=== PATIENT | male | born 1950 | race Caucasian/White ===

== ENCOUNTER 2017-10-29 12:24 | Emergency (ER) | payer MEDICARE, OTHER ==
[~2017-10-29] VITALS: Ht 188 cm; Wt 90.8 kg
[~2017-10-29 12:24] MED LIST: ASCO-262 PO; ASCO500T20 PO; ASPI-266 PO; ASPI-586 PO; ASPI325T4 PEG; AVOD0.5CAP PO; Atorvastatin Calcium PEG; BACL10TA PO; CARB200T PO; CARI350T PO; CELE200C PO; CETI10TA17 PO; CETI10TA57 PO; CLCX100C PO; DEXT1CAP3 PO; DICL100G13 TOP; DIPH25TA31 PO; DIPH25TA82 PO; DOCU-238 PO; DPH125U5 PO; FLUO20CA25 PO; GABA-488 PO; GABA100C PO; Gabapentin PO; HEPARIN SOD SC; LEVE100S PEG; LEVE100S16 PO; LORA-405 PO; Linezolid PO; MULT-974 PO; MULT1TAB69 PO; NEUDEXTA PO; NFPRILOC40 PO; OMEP20CA6 PO; OMEP20TA7 PO; ROSU5TAB PO; SULF1TAB35 PO; TAMS0.4C98 PO; Trazodone Hcl PEG; VITA1CAP PO; tegretol PO
--- NOTE | 2017-10-29 14:11 | ED GU-Male ---
General Chief Complaint: -Male Stated Complaint: ENLARGED PROSTATE,CAN'T URINATE Nursing Triage Note: PT WITH HX OF STROKE 3 YRS AGO PRESENTS WITH BEING UNABLE TO URINATE SINCE LAST NIGHT. HX OF URINARY ISSUES, KIDNEY STONE THAT HE HAS SEEN DR. ALTAMIRANO ABOUT LAST MAY. Source: patient Exam Limitations: no limitations History of Present Illness Date Seen by Provider: Oct 29, 2017 Time Seen by Provider: 14:09 Initial Comments Patient sent to ER by private vehicle from [facility] in [facility] with reports of urinary retention. He has not urinated since last night at 10 PM. He complained to his of some suprapubic abdominal pain. He is very dysphasic as a residual effect of stroke 3 years ago. He is wheelchair bound. He does see Dr. Altamirano for BPH/left ureteral stone. He recently had a kidney stone that was unable to be removed and had left ureteral stent placed and removed by Dr Altamirano. Primary care is Dr. Davila at [facility] in [place] Timing/Duration: just prior to arrival Severity/Quality: moderate Location: suprapubic Radiation: none Activities at Onset: none Prior Genitourinary Problems: none Associated Symptoms: abdominal pain, dysuria Allergies and Home Medications Allergies Coded Allergies: butorphanol (Unverified Adverse Reaction, Unknown, 09/13/14) HALLUCINATIONS fentanyl (Verified Adverse Reaction, Unknown, hallucinations, 04/03/16) nalbuphine (Unverified Adverse Reaction, Unknown, 09/13/14) HALLUCINATIONS Home Medications Ascorbate Calcium 500 Mg Tablet, 500 MG PO BID, (Reported) Baclofen 10 Mg Tablet, 10 MG PO DAILY, (Reported) Carbamazepine 200 Mg Tablet, 200 MG PO BID, (Reported) Dextromethorphan HBr/Quinidine 1 Each Capsule, 1 TAB PO BID, (Reported) Diphenhydramine HCl 25 Mg Tablet, 25 MG PO BID, (Reported) Docusate Sodium 100 Mg Capsule, 100 MG PO BID, (Reported) Dutasteride 0.5 Mg Cap, 0.5 MG PO HS, (Reported) Fluoxetine HCl 20 Mg Capsule, 20 MG PO DAILY, (Reported) Gabapentin 300 Mg Capsule, 300 MG PO HS, (Reported) Hydrocodone/Acetaminophen 1 Each Tablet, 1 EACH PO Q4H PRN for PAIN-MODERATE TO SEVERE Prescribed by: PHILIPP BEJARANO on 10/29/17 1617 Lorazepam 1 Mg Tablet, 1 MG PO HS, (Reported) Multivitamin 1 Each Tablet, 1 EACH PO DAILY, (Reported) Omeprazole 20 Mg Tablet.dr, 20 MG PO DAILY, (Reported) Rosuvastatin Calcium 5 Mg Tablet, 10 MG PO HS, (Reported) Sulfamethoxazole/Trimethoprim 1 Each Tablet, 1 EACH PO HS, (Reported) Sulfamethoxazole/Trimethoprim 1 Each Tablet, 1 EACH PO BID Prescribed by: PHILIPP BEJARANO on 10/29/17 161 Vitamin B Complex 1 Each Capsule, 1 EACH PO DAILY, (Reported) Patient Home Medication List Home Medication List Reviewed: Yes Constitutional: see HPI EENTM: see HPI Respiratory: no symptoms reported Cardiovascular: no symptoms reported Genitourinary: see HPI Musculoskeletal: no symptoms reported Skin: no symptoms reported Psychiatric/Neurological: No Symptoms Reported Endocrine: No Symptoms Reported Past Wistlih-Xkwuyd-Vmwydr Hx Patient Social History Alcohol Use: Denies Use Recreational Drug Use: No Smoking Status: Former Smoker Former Smoker, Quit: Jul 30, 2012 Recent Foreign Travel: No Contact w/Someone Who Travel: No Recent Infectious Disease Expo: No Recent Hopitalizations: No Immunizations Up To Date Date of Pneumonia Vaccine: Aug 13, 2013 Date of Influenza Vaccine: May 16, 2017 Seasonal Allergies Seasonal Allergies: No Surgeries History of Surgeries: Yes (right CEA, knee sx x5, right foot sx, hernia sx, lower back sx) Surgeries: Appendectomy, Neurological, Orthopedic, Vascular Surgery Respiratory History of Respiratory Disorde: No Cardiovascular History of Cardiac Disorders: Yes (ANGIOPLASTY '96, HIGH LIPIDS, CAROTID STENOSIS ) Cardiac Disorders: High Cholesterol, Peripheral Vascular Neurological History of Neurological Disord: Yes (YEARS AGO BAD HEADACHES, DIZZY SPELLS/ FAINTING) Neurological Disorders: Seizure Disorder, Stroke Genitourinary History of Genitourinary Disor: Yes Genitourinary Disorders: Kidney Stones, UTI-Chronic Gastrointestinal History of Gastrointestinal Di: Yes Gastrointestinal Disorders: Gastroesophageal Reflux Musculoskeletal History of Musculoskeletal Dis: Yes (ARTHRITIS HANDS, KNEES; SCIATIC NERVE SURG ) Musculoskeletal Disorders: Arthritis Endocrine History of Endocrine Disorders: No HEENT HEENT Disorders: Dysphagia Hearing Impairment: Denies Cancer History of Cancer: No Psychosocial History of Psychiatric Problem: No Integumentary History of Skin or Integumenta: No Blood Transfusions History of Blood Disorders: No Adverse Reaction to a Blood Tr: No Family Medical History Family Medial History: Alzheimer's disease Uncle FH: CVA (cerebrovascular accident) Uncle Uncle FH: coronary artery disease 19 FATHER G8 BROTHER FH: lung cancer G8 BROTHER FH: uterine cancer Aunt Hypertension G8 BROTHER Myocardial infarction 19 FATHER Vertigo Uncle Aunt Physical Exam Vital Signs Vital Signs - First Documented 10/29/17 13:50 Temp 96.9 Pulse 85 Resp 20 B/P (MAP) 134/97 (109) Pulse Ox 96 O2 Delivery Room Air Capillary Refill : Less Than 3 Seconds General Appearance: WD/WN, no apparent distress HEENT: PERRL/EOMI, normal ENT inspection Neck: non-tender, full range of motion Respiratory: normal breath sounds, no respiratory distress, no accessory muscle use Gastrointestinal: normal bowel sounds, non tender, tenderness (hypoactive bowel sounds) Extremities: normal range of motion, non-tender Neurologic/Psychiatric: alert, normal mood/affect Skin: normal color, warm/dry Progress/Results/Core Measures Suspected Sepsis Recent Fever Within 48 Hours: No Infection Criteria Present: None New/Unexplained Altered Menta: No Sepsis Screen: No Definite Risk Sepsis Diagnosis: SIRS Temperature:96.9 Pulse: 85 Respiratory Rate: 20 Laboratory Tests 10/29/17 14:30: White Blood Count 4.8 Blood Pressure 134 /97 Mean: 109 Laboratory Tests 10/29/17 14:30: Creatinine 0.96, Platelet Count 194, Total Bilirubin 0.6 Results/Orders Lab Results Laboratory Tests Test 10/29/17 14:30 10/29/17 15:20 Range/Units White Blood Count 4.8 4.3-11.0 10^3/uL Red Blood Count 4.77 4.35-5.85 10^6/uL Hemoglobin 14.7 13.3-17.7 G/DL Hematocrit 42 40-54 % Mean Corpuscular Volume 88 80-99 FL Mean Corpuscular Hemoglobin 31 25-34 PG Mean Corpuscular Hemoglobin Concent 35 32-36 G/DL Red Cell Distribution Width 14.0 10.0-14.5 % Platelet Count 194 130-400 10^3/uL Mean Platelet Volume 9.6 7.4-10.4 FL Neutrophils (%) (Auto) 58 42-75 % Lymphocytes (%) (Auto) 26 12-44 % Monocytes (%) (Auto) 13 H 0-12 % Eosinophils (%) (Auto) 2 0-10 % Basophils (%) (Auto) 0 0-10 % Neutrophils # (Auto) 2.8 1.8-7.8 X 10^3 Lymphocytes # (Auto) 1.3 1.0-4.0 X 10^3 Monocytes # (Auto) 0.6 0.0-1.0 X 10^3 Eosinophils # (Auto) 0.1 0.0-0.3 10^3/uL Basophils # (Auto) 0.0 0.0-0.1 10^3/uL Sodium Level 140 135-145 MMOL/L Potassium Level 4.3 3.6-5.0 MMOL/L Chloride Level 109 H 98-107 MMOL/L Carbon Dioxide Level 26 21-32 MMOL/L Anion Gap 5 5-14 MMOL/L Blood Urea Nitrogen 18 7-18 MG/DL Creatinine 0.96 0.60-1.30 MG/DL Estimat Glomerular Filtration Rate > 60 BUN/Creatinine Ratio 19 Glucose Level 97 70-105 MG/DL Calcium Level 8.9 8.5-10.1 MG/DL Total Bilirubin 0.6 0.1-1.0 MG/DL Aspartate Amino Transf (AST/SGOT) 14 5-34 U/L Alanine Aminotransferase (ALT/SGPT) 17 0-55 U/L Alkaline Phosphatase 69 40-136 U/L Total Protein 7.2 6.4-8.2 GM/DL Albumin 4.0 3.2-4.5 GM/DL Urine Color TUNG H Urine Clarity CLEAR Urine pH 5 5-9 Urine Specific [place] 1.025 H 1.016-1.022 Urine Protein 1+ H NEGATIVE Urine Glucose (UA) NEGATIVE NEGATIVE Urine Ketones NEGATIVE NEGATIVE Urine Nitrite NEGATIVE NEGATIVE Urine Bilirubin NEGATIVE NEGATIVE Urine Urobilinogen NORMAL NORMAL MG/DL Urine Leukocyte Esterase 2+ H NEGATIVE Urine RBC (Auto) 4+ H NEGATIVE Urine RBC 10-25 H /HPF Urine WBC 50-100 H /HPF Urine Crystals NONE /LPF Urine Bacteria TRACE /HPF Urine Casts NONE /LPF Urine Mucus SMALL H /LPF Urine Culture Indicated YES My Orders Orders - PHILIPP BEJARANO VEGETABLE INSPECTOR Cbc With Automated Diff (10/29/17 14:08) Comprehensive Metabolic Panel (10/29/17 14:08) Saline Lock/Iv-Start (10/29/17 14:08) Ct Abd/Pelvis Wo(Kidney Stone) (10/29/17 14:08) Ketorolac Injection (Toradol Injection) (10/29/17 14:15) Lactated Ringers (Lr 1000 Ml Iv Solution (10/29/17 14:15) Ua Culture If Indicated (10/29/17 14:08) Lidocaine 2% (Urojet) (Xylocaine Urojet) (10/29/17 15:20) Begum Cath Insertion (10/29/17 15:30) Urine Culture (10/29/17 15:20) Ceftriaxone Injection (Rocephin Injectio (10/29/17 16:15) Abdomen/Kub 1view (10/29/17 16:09) Medications Given in ED Current Medications Medications Dose Ordered Sig/Jn Route Start Time Stop Time Status Last Admin Dose Admin Ceftriaxone Sodium 1000 mg/ Sodium Chloride 100 ml @ 200 mls/hr ONCE ONCE IV 10/29/17 16:15 10/29/17 16:44 DC 10/29/17 16:29 200 MLS/HR Ketorolac Tromethamine 15 mg ONCE ONCE IVP 10/29/17 14:15 10/29/17 14:16 DC 10/29/17 14:37 15 MG Vital Signs/I&O Vital Sign - Last 12Hours 10/29/17 10/29/17 10/29/17 13:50 14:37 17:10 Temp 96.9 96.9 97.0 Pulse 85 80 Resp 20 20 B/P (MAP) 134/97 (109) 130/90 (109) Pulse Ox 96 97 O2 Delivery Room Air Room Air Capillary Refill : Less Than 3 Seconds Blood Pressure Mean: 109 Progress Note : Progress Note NAME: FINN FIGU[facility]EDO [facility] REC#: [id number] PT STATUS: REG ER : 1950 PHYSICIAN: PHILIPP BEJARANO APRN ADMIT DATE: 10/29/17/ER Draft Date of Exam:10/29/17 CT ABD/PELVIS WO(KIDNEY STONE) PROCEDURE: CT urinary tract, rule out kidney stone. TECHNIQUE: Multiple contiguous axial images were obtained through the abdomen and pelvis without the use of intravenous contrast. INDICATION: Urination problems, lower abdominal pain, prostate cancer. CORRELATION STUDY: None. FINDINGS: LOWER THORAX: No significant basilar infiltrate. Trace pleural effusions. Areas of bronchial thickening noted about the lung bases. Heart size is normal with a small pericardial effusion inferiorly. LIVER: A 7.5 x 5.5 cm low-density masslike finding in a large portion of the left lobe of the liver is present, most compatible with a cyst. A 1 cm low-density foci in the anterolateral aspect of the liver is also present, incompletely characterized on this study. GALLBLADDER: Present and unremarkable. No bile duct dilatation. SPLEEN: Unremarkable. PANCREAS: At the anterior neck is a questionable 11 x 9 mm low-density region. ADRENAL GLANDS: Unremarkable. KIDNEYS: Nonobstructing bilateral renal stones are present. The largest is in the inferior pole of the left kidney, likely grouped calcification in aggregate 8 mm. Slight loss of smooth cortical margins are noted. Most pronounced area exophytic at the inferior pole on the right measures 11 mm, incompletely characterized and favors probable cyst. There is a moderate left-sided obstructive uropathy owing to an approximately 6 x 6 mm stone located at the junction of the middle and distal third of the of left ureter. This is approximately 7 cm proximal to the ureterovesical junction. The remainder of the distal left ureter and right renal collecting system are unremarkable. ABDOMINAL AORTA: Moderate wall calcification. An infrarenal fusiform aneurysm is present, maximum dimension at 3.8 x 3.7 cm. GASTROINTESTINAL TRACT: Colon diverticulosis without evidence for acute diverticulitis. Mild severity fecal retention. No obstruction. URINARY BLADDER: Unremarkable. REPRODUCTIVE: Prostate gland a few microcalcifications, otherwise unremarkable. OSSEOUS STRUCTURES: Compression deformity is non-acute superior T9 , T10-T11 vertebral bodies. Advanced multilevel degenerative changes are present. Leftward curvature. IMPRESSION: 1. Moderate left-sided obstructive uropathy owing to approximately a 6 mm stone located in the mid to distal third of the left ureter. Additional nonobstructing bilateral renal stones are present. 2. There is an infrarenal abdominal aortic aneurysm with a maximum dimension just under 4 cm. Dictated on workstation # [id number] Dict: 10/29/17 1502 Trans: 10/29/17 1538 [facility] [id number] Interpreted by: KAEL DUKE DO Electronically signed by: Departure Communication (Admissions) Progress Notes I spoke with Dr. Altamirano. Recommends IV Rocephin, oral antibiotics, leave catheter in place and discharged home. He will follow-up with the patient in clinic tomorrow and schedule for lithotripsy. His primary care provider is Dr. Davila at the [facility]. Fax #[phone]. I did fax the CT report and my note to them so that the patient can receive follow-up on the pancreatic lesion. I did discuss with the patient's the need for follow-up with primary care in regards to this pancreatic abnormal appearance on CT. Impression Impression: Primary Impression: Urinary retention Additional Impressions: Urinary tract infection Left ureteral stone Lesion of pancreas Disposition: HOME, SELF-CARE Condition: Stable Departure-Patient Inst. Decision time for Depature: 16:12 Referrals: WESLEY CRUZ DO (PCP) Primary Care Physician CARYN NEWMAN (Family) Primary Care Physician Patient Instructions: Urinary Tract Infection, Adult (DC) Add. Discharge Instructions: 1. Antibiotics as directed 2. Leave the Begum catheter in place 3. Your scheduled to see Dr. Altamirano tomorrow at 2:30 PM. Pain medication as needed. All discharge instructions reviewed with patient and/or family. Voiced understanding. Scripts Sulfamethoxazole/Trimethoprim (Bactrim Ds Tablet) 1 Each Tablet 1 EACH PO BID, #14 TAB Prov: PHILIPP BEJARANO APRN 10/29/17 Hydrocodone/Acetaminophen ([place] 5-325 Tablet) 1 Each Tablet 1 EACH PO Q4H Y for PAIN-MODERATE TO SEVERE, #14 TAB Prov: PHILIPP BEJARANO APRN 10/29/17 Copy Copies To 1: NATHANAEL ALTAMIRANO MD, PETER J APRN Oct 29, 2017 14:11
[2017-10-29] MEDS ORDERED: LACTATED RINGERS 1,000 ML IV SCH (14:15)
[2017-10-29] MEDS ORDERED: KETOROLAC 30 MG/ML VIAL IVP ONE (14:15)
[2017-10-29 14:37] LABS: BASOPHILS % (AUTO) 0 % (0-10); EOSINOPHILS # (AUTO) 0.1 10^3/uL (0.0-0.3); EOSINOPHILS % (AUTO) 2 % (0-10); HEMATOCRIT 42 % (40-54); HEMOGLOBIN 14.7 G/DL (13.3-17.7); LYMPHOCYTES # (AUTO) 1.3 X 10^3 (1.0-4.0); LYMPHOCYTES % (AUTO) 26 % (12-44); MEAN CORPUSCULAR HEMOGLOBIN 31 PG (25-34); MEAN CORPUSCULAR HGB CONC 35 G/DL (32-36); MEAN CORPUSCULAR VOLUME 88 FL (80-99); MEAN PLATELET VOLUME 9.6 FL (7.4-10.4); MONOCYTES # (AUTO) 0.6 X 10^3 (0.0-1.0); MONOCYTES % (AUTO) 13 % (0-12); NEUTROPHILS # (AUTO) 2.8 X 10^3 (1.8-7.8); NEUTROPHILS % (AUTO) 58 % (42-75); PLATELET COUNT 194 10^3/uL (130-400); RED BLOOD COUNT 4.77 10^6/uL (4.35-5.85); WHITE BLOOD COUNT 4.8 10^3/uL (4.3-11.0)
[2017-10-29 15:01] LABS: ALANINE AMINOTRANSFERASE 17 U/L (0-55); ALKALINE PHOSPHATASE 69 U/L (40-136); BILIRUBIN,TOTAL 0.6 MG/DL (0.1-1.0); BUN/CREATININE RATIO 19; CALCIUM 8.9 MG/DL (8.5-10.1); CARBON DIOXIDE 26 MMOL/L (21-32); CHLORIDE 109 MMOL/L (98-107); CREATININE SERUM 0.96 MG/DL (0.60-1.30); GFR ESTIMATED > 60; GLUCOSE 97 MG/DL (70-105); POTASSIUM 4.3 MMOL/L (3.6-5.0); SODIUM 140 MMOL/L (135-145); TOTAL PROTEIN 7.2 GM/DL (6.4-8.2)
[2017-10-29] MEDS ORDERED: LIDOCAINE UROJET 2% GEL 10 ML PKG ONE (15:20)
[2017-10-29 15:39] LABS: BILIRUBIN,URINE NEGATIVE (NEGATIVE); CLARITY,URINE CLEAR; COLOR,URINE AMBER; GLUCOSE, URINE (UA) NEGATIVE (NEGATIVE); KETONES,URINE NEGATIVE (NEGATIVE); LEUKOCYTE ESTERASE ,URINE 2+ (NEGATIVE); NITRITE,URINE NEGATIVE (NEGATIVE); PH,URINE 5 (5-9); PROTEIN,URINE 1+ (NEGATIVE); UROBILINOGEN,URINE NORMAL (NORMAL)
--- NOTE | 2017-10-29 15:39 | Diagnostic Imaging Report ---
PROCEDURE: CT urinary tract, rule out kidney stone. TECHNIQUE: Multiple contiguous axial images were obtained through the abdomen and pelvis without the use of intravenous contrast. INDICATION: Urination problems, lower abdominal pain, prostate cancer. CORRELATION STUDY: None. FINDINGS: LOWER THORAX: No significant basilar infiltrate. Trace pleural effusions. Areas of bronchial thickening noted about the lung bases. Heart size is normal with a small pericardial effusion inferiorly. LIVER: A 7.5 x 5.5 cm low-density masslike finding in a large portion of the left lobe of the liver is present, most compatible with a cyst. A 1 cm low-density foci in the anterolateral aspect of the liver is also present, incompletely characterized on this study. GALLBLADDER: Present and unremarkable. No bile duct dilatation. SPLEEN: Unremarkable. PANCREAS: At the anterior neck is a questionable 11 x 9 mm low-density region. ADRENAL GLANDS: Unremarkable. KIDNEYS: Nonobstructing bilateral renal stones are present. The largest is in the inferior pole of the left kidney, likely grouped calcification in aggregate 8 mm. Slight loss of smooth cortical margins are noted. Most pronounced area exophytic at the inferior pole on the right measures 11 mm, incompletely characterized and favors probable cyst. There is a moderate left-sided obstructive uropathy owing to an approximately 6 x 6 mm stone located at the junction of the middle and distal third of the of left ureter. This is approximately 7 cm proximal to the ureterovesical junction. The remainder of the distal left ureter and right renal collecting system are unremarkable. ABDOMINAL AORTA: Moderate wall calcification. An infrarenal fusiform aneurysm is present, maximum dimension at 3.8 x 3.7 cm. GASTROINTESTINAL TRACT: Colon diverticulosis without evidence for acute diverticulitis. Mild severity fecal retention. No obstruction. URINARY BLADDER: Unremarkable. REPRODUCTIVE: Prostate gland a few microcalcifications, otherwise unremarkable. OSSEOUS STRUCTURES: Compression deformity is non-acute superior T9 , T10-T11 vertebral bodies. Advanced multilevel degenerative changes are present. Leftward curvature. IMPRESSION: 1. Moderate left-sided obstructive uropathy owing to approximately a 6 mm stone located in the mid to distal third of the left ureter. Additional nonobstructing bilateral renal stones are present. 2. There is an infrarenal abdominal aortic aneurysm with a maximum dimension just under 4 cm. Dictated by: Dictated on workstation # [id number]
[2017-10-29 16:01] LABS: WBC,URINE 50-100 /HPF
[2017-10-29 16:02] LABS: BACTERIA,URINE TRACE /HPF
[2017-10-29] MEDS ORDERED: cefTRIAXone INJECTION 1,000 MG in NS (IVPB) 100 ML IV ONE (16:15)
[2017-10-29] MEDS ORDERED: SULF1TAB35 PO (16:17)
[2017-10-29] MEDS ORDERED: HYDR-757 PO (16:17)
--- NOTE | 2017-10-29 16:51 | Diagnostic Imaging Report ---
INDICATION: Dysuria. Portable supine images of the abdomen are obtained. Comparison is made to the study of 04/07/2016. FINDINGS: Overall bowel gas pattern is unremarkable. There are faint calcifications projecting over the mid portion of the left kidney, which likely represent renal calculi. No definite stone is seen along the course of either ureter; however, overlying bowel does limit evaluation. Catheter projects over the midline of the pelvis and could be in the bladder. IMPRESSION: Intrarenal calculi, greater on the left. No definite ureteric stone is seen by radiography. Dictated by: Dictated on workstation # [id number]
[2017-10-29 17:10] VITALS: BP 130/90
== END 2017-10-29 17:10 | disposition home or self-care (01) ==
LOC: EDUNIT# 12:24 → ER 12:26
DX: N13.6 Pyonephrosis (principal); K86.89 Other specified diseases of pancreas; K21.9 Gastro-esophageal reflux disease without esophagitis; G40.909 Epilepsy, unspecified, not intractable, without status epilepticus; E78.00 Pure hypercholesterolemia, unspecified; Z90.49 Acquired absence of other specified parts of digestive tract; Z86.73 Personal history of transient ischemic attack (TIA), and cerebral infarction without residual deficits; Z87.442 Personal history of urinary calculi; Z87.891 Personal history of nicotine dependence; Z88.1 Allergy status to other antibiotic agents; Z88.6 Allergy status to analgesic agent
CPT/HCPCS: 36415; 51702; 74018; 74176; 80053; 81000; 85025; 87088

== ENCOUNTER 2017-10-30 15:14 | Outpatient (CLI) | payer MEDICARE, OTHER ==
[~2017-10-30] VITALS: Ht 188 cm; Wt 90.7 kg
[~2017-10-30 15:14] MED LIST changes: +HYDR-757 PO
== END 2017-10-30 15:40 | disposition home or self-care (01) ==
LOC: PREOP 15:14
PROVIDERS: ATTEND Urology
DX: Z01.818 Encounter for other preprocedural examination (principal); Z11.2 Encounter for screening for other bacterial diseases; N20.1 Calculus of ureter; N20.0 Calculus of kidney; N40.0 Benign prostatic hyperplasia without lower urinary tract symptoms
CPT/HCPCS: 87081

== ENCOUNTER 2017-11-07 06:25 | Day surgery (SDC) | payer MEDICARE, OTHER ==
[~2017-11-07] VITALS: Ht 188 cm; Wt 90.7 kg
--- NOTE | 2017-11-07 07:00 | Progress Note-Pre Operative ---
Pre-Operative Progress Note H&P Reviewed The H&P was reviewed, patient examined and no changes noted. Date Seen by Provider: Nov 07, 2017 Time Seen by Provider: 07:00 Date H&P Reviewed: Nov 07, 2017 Time H&P Reviewed: 07:00 Pre-Operative Diagnosis: LT URETERAL STONE NATHANAEL ALTAMIRANO MD Nov 07, 2017 7:00 am
[2017-11-07] MEDS ORDERED: CATHETER FLUSH 10 ML SYR IV PRN (07:30)
[2017-11-07] MEDS ORDERED: cefTRIAXone 1 GM/NS 100 ML IVPB IV ONE ×2 (07:30)
[2017-11-07] MEDS ORDERED: LACTATED RINGERS 1,000 ML IV PRN (07:33)
[2017-11-07] MEDS ORDERED: cefTRIAXone INJECTION 1,000 MG in NS (IVPB) 100 ML IV ONE (07:45)
[2017-11-07] MEDS ORDERED: MIDAZOLAM 2 MG/2 ML (VERSED) VIAL ONE (07:46)
[2017-11-07] MEDS ORDERED: proPOfol 200 MG/20 ML (DIPRIVAN) VIAL IV ONE (07:46)
[2017-11-07] MEDS ORDERED: LIDOCAINE PF 2% 5 ML (XYLOCAINE) VIAL ONE (07:46)
[2017-11-07] MEDS ORDERED: DEXAMETHASONE 10 MG/ML (DECADRON) 1 ML VIAL ONE (07:46)
[2017-11-07] MEDS ORDERED: SEVOFLURANE (ULTANE) 15 ML INHAL SOLN ONE ×5 (07:46→09:13)
[2017-11-07] MEDS ORDERED: ONDANSETRON 4 MG/2 ML (SDV) Z0FRAN ONE (07:46)
[2017-11-07 08:03] VITALS: BP 124/89
[2017-11-07] MEDS ORDERED: fentaNYL INJECTION 100 MCG/2 ML AMP ONE (08:12)
--- NOTE | 2017-11-07 08:24 | Diagnostic Imaging Report ---
INDICATION: Kidney stones, preop. Time of exam 7:17 AM Comparison is made with prior abdominal radiographs from 10/29/2017. Calcific densities in the left abdomen are noted, likely renal. There may be some vague calcific densities in the right abdomen as well which could be renal as well. No definite ureteric calculi are detected. Bowel gas pattern is unremarkable. IMPRESSION: Bilateral abdominal calcifications, perhaps a renal calculi. No other abnormality is seen. Dictated by: Dictated on workstation # [id number]
--- NOTE | 2017-11-07 09:07 | Progress Note-Post Operative ---
Post-Operative Progess Note Surgeon (s)/Associate Store Director (s) Surgeon NATHANAEL ALTAMIRANO MD Associate Store Director: N/A Pre-Operative Diagnosis LT URETERAL STONE Post-Operative Diagnosis SAME Procedure & Operative Findings Date of Procedure 11/07/17 Procedure Performed/Findings CYSTO, LT URETERAL CATHETER AND LT ESWL Anesthesia Type GENERAL Estimated Blood Loss Estimated blood loss (mL): N/A Specimens/Packing Specimens Removed N/A Packing: N/A NATHANAEL ALTAMIRANO MD Nov 07, 2017 9:07 am
[2017-11-07] MEDS ORDERED: FUROSEMIDE 40 MG/4 ML INJ (LASIX) ONE (09:11)
[2017-11-07] MEDS ORDERED: KETOROLAC 30 MG/ML VIAL ONE (09:11)
--- NOTE | 2017-11-07 09:11 | Discharge Inst-Urology ---
Discharge Inst-Urology Discharge Medications New, Converted, or Re-newed RX: RX on Chart Patient Instructions/Follow Up Plan Please make appointment to been seen in office in 2 weeks. KUB prior to it KUB on way home Post ESWL instructions Increase oral fluids for 48 hours and then as needed. Diet and Activity as tolerated. If questions or concerns contact your physician Or seek help at emergency department. NATHANAEL ALTAMIRANO MD Nov 07, 2017 9:11 am
[2017-11-07] MEDS ORDERED: ONDANSETRON 4 MG/2 ML (SDV) Z0FRAN IVP PRN (09:30)
[2017-11-07] MEDS ORDERED: fentaNYL INJECTION 100 MCG/2 ML AMP IVP PRN (09:30)
--- NOTE | 2017-11-07 09:51 | Anesthesia-General Post-Op ---
General Patient Condition Mental Status/LOC: Same as Preop Cardiovascular: Satisfactory Nausea/Vomiting: Absent Respiratory: Satisfactory Pain: Controlled Complications: Absent Post Op Complications Complications None Follow Up Care/Instructions Patient Instructions None needed. Anesthesia/Patient Condition Patient Condition Patient is doing well, no complaints, stable vital signs, no apparent adverse anesthesia problems. No complications reported per nursing. DILLAN VILLAFUERTE CRNA Nov 07, 2017 09:51
[2017-11-07 10:10] VITALS: BP 142/90
[2017-11-07] MEDS ORDERED: CIPR-225 PO (10:27)
[2017-11-07] MEDS ORDERED: HYDR-3870 PO (10:27)
[2017-11-07] MEDS ORDERED: TAMS0.4C98 PO (10:27)
[2017-11-07 10:40] VITALS: BP 131/91
[2017-11-07 11:10] VITALS: BP 110/83
[2017-11-07 11:30] VITALS: BP 110/83
--- NOTE | 2017-11-07 11:39 | Diagnostic Imaging Report ---
INDICATION: Status post lithotripsy. Time of exam 1100 a.m. Correlation made with radiographs earlier the same day. A left-sided calculi are stable. No definite right-sided calculi are seen. No definite calculi along the course of the ureters are identified. IMPRESSION: Stable KUB since study earlier the same day. Dictated by: Dictated on workstation # [id number]
--- NOTE | 2017-11-07 13:30 | OPERATIVE REPORT ---
DATE OF SERVICE: 11/07/2017 PREOPERATIVE DIAGNOSIS: Left proximal ureteral stone. POSTOPERATIVE DIAGNOSIS: Left proximal ureteral stone. OPERATION PERFORMED: Cystoscopy, left ureteral catheterization and left ESWL. SURGEON: Manny Altamirano MD ANESTHESIA: General. COMPLICATIONS: None. PROCEDURE: Under satisfactory general anesthesia, the patient in a lithotomy position on the cystoscopy table. Genitalia were prepped and draped in the usual sterile fashion. A 23[place] cystoscope was introduced under vision. Anterior urethra was normal. The prostate revealed some enlargement was a median bar bladder neck obstruction. Bladder was entered and revealed trabeculations. Ureteric orifices normal in shape, size and configuration with clear efflux sluggish on the left side. Using the foroblique lens, I passed a 6-[place] ureteral catheter up until I met the stone around the level of the L4. A left ureteral catheter there used for contrast if needed for the ESWL. I removed the cystoscope, inserted the Begum catheter drained the bladder, inflated the balloon to 10 mL, to the ureteral catheter over the patient to the ESWL table. The stone was localized easily and shocks were delivered at kV of 6. A total of 3000 shocks fragmented the stone nicely. We did not need to do any contrast. At the end of the procedure, the Begum catheter and ureteral catheter were removed. The patient received 40 mg of Lasix and 30 mg of Toradol IV. He tolerated the procedure and anesthesia well and was sent to recovery room in stable condition. Job ID: [id number] DocumentID: [id number] Dictated Date: 11/07/2017 09:14:16 Fountain Operator Date: 11/07/2017 13:30:17 Dictated By: MANNY ALTAMIRANO MD
== END 2017-11-07 11:30 | disposition home or self-care (01) ==
LOC: SDC 06:25
PROVIDERS: ATTEND Urology
DX: N20.1 Calculus of ureter (principal); E78.5 Hyperlipidemia, unspecified; I73.9 Peripheral vascular disease, unspecified; G40.909 Epilepsy, unspecified, not intractable, without status epilepticus; N40.0 Benign prostatic hyperplasia without lower urinary tract symptoms; I25.10 Atherosclerotic heart disease of native coronary artery without angina pectoris; Z86.73 Personal history of transient ischemic attack (TIA), and cerebral infarction without residual deficits; Z95.5 Presence of coronary angioplasty implant and graft; Z79.899 Other long term (current) drug therapy; Z88.8 Allergy status to other drugs, medicaments and biological substances; Z99.3 Dependence on wheelchair
CPT/HCPCS: 74018

== ENCOUNTER → 2017-11-22 | Outpatient (CLI) | payer MEDICARE, OTHER ==
[~2017-11-22] MED LIST changes: +CIPR-225 PO; +HYDR-3870 PO
--- NOTE | 2017-11-22 13:05 | Diagnostic Imaging Report ---
INDICATION: Post left ESWL. Left ureteral stone Supine views of the abdomen shows bowel gas pattern to be within normal limits with no abnormally dilated loops of bowel. There is mild constipation. There is a 6 mm calcification projected over lower pole left kidney. No ureteral stones are evident. There is scoliosis with no acute bony abnormality. IMPRESSION: There is a 6 mm calculus in the lower pole of the left kidney. Dictated by: Dictated on workstation # [id number]
== END ==
LOC: RAD 12:40
PROVIDERS: ATTEND Urology
DX: N20.2 Calculus of kidney with calculus of ureter (principal)
CPT/HCPCS: 74018

== ENCOUNTER 2018-04-18 10:08 | Emergency (ER) | payer MEDICARE, OTHER ==
[~2018-04-18] VITALS: Ht 188 cm; Wt 90.7 kg
[~2018-04-18 10:08] MED LIST changes: +HYDR-4226 PO; -HYDR-757 PO
--- NOTE | 2018-04-18 10:35 | ED GU-Male ---
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 He has a history of enlarged prostate and has had these troubles before. Timing/Duration: constant Severity/Quality: moderate Location: suprapubic Radiation: none Activities at Onset: none Prior Genitourinary Problems: none Associated Symptoms: dysuria Allergies and Home Medications Allergies Coded Allergies: butorphanol (Unverified Adverse Reaction, Unknown, 09/13/14) HALLUCINATIONS fentanyl (Verified Adverse Reaction, Unknown, hallucinations, 04/03/16) nalbuphine (Unverified Adverse Reaction, Unknown, 09/13/14) HALLUCINATIONS Home Medications Ascorbate Calcium 500 Mg Tablet, 500 MG PO BID, (Reported) Baclofen 10 Mg Tablet, 10 MG PO DAILY, (Reported) Carbamazepine 200 Mg Tablet, 200 MG PO BID, (Reported) Ciprofloxacin HCl 500 Mg Tablet, 500 MG PO BID Prescribed by: JOSE VARGAS on 11/07/17 1027 Dextromethorphan HBr/Quinidine 1 Each Capsule, 1 TAB PO BID, (Reported) Diphenhydramine HCl 25 Mg Tablet, 25 MG PO BID, (Reported) Docusate Sodium 100 Mg Capsule, 100 MG PO BID, (Reported) Dutasteride 0.5 Mg Cap, 0.5 MG PO HS, (Reported) Fluoxetine HCl 20 Mg Capsule, 20 MG PO DAILY, (Reported) Gabapentin 300 Mg Capsule, 300 MG PO HS, (Reported) Hydrocodone/Acetaminophen 1 Each Tablet, 1 EACH PO Q4H PRN for PAIN-MODERATE TO SEVERE Prescribed by: PHILIPP BEJARANO on 10/29/17 1617 Hydrocodone/Acetaminophen 1 Each Tablet, 1-2 TAB PO Q4H PRN for PAIN Prescribed by: JOSE VARGAS on 11/07/17 1027 Lorazepam 1 Mg Tablet, 1 MG PO HS, (Reported) Multivitamin 1 Each Tablet, 1 EACH PO DAILY, (Reported) Omeprazole 20 Mg Tablet.dr, 20 MG PO DAILY, (Reported) Rosuvastatin Calcium 5 Mg Tablet, 10 MG PO HS, (Reported) Sulfamethoxazole/Trimethoprim 1 Each Tablet, 1 EACH PO HS, (Reported) Sulfamethoxazole/Trimethoprim 1 Each Tablet, 1 EACH PO BID Prescribed by: PHILIPP BEJARANO on 10/29/17 1617 Tamsulosin HCl 0.4 Mg Cap, 0.4 MG PO DAILY Prescribed by: JOSE VARGAS on 11/07/17 1027 Vitamin B Complex 1 Each Capsule, 1 EACH PO DAILY, (Reported) Patient Home Medication List Home Medication List Reviewed: Yes Review of Systems Review of Systems Constitutional: see HPI EENTM: see HPI Respiratory: no symptoms reported Cardiovascular: no symptoms reported Genitourinary: see HPI, dysuria Musculoskeletal: no symptoms reported Skin: no symptoms reported Psychiatric/Neurological: No Symptoms Reported Endocrine: No Symptoms Reported Hematologic/Lymphatic: No Symptoms Reported Past Nnfczek-Dyikkc-Ywbccn Hx Patient Social History Type Used: Cigarettes Former Smoker, Quit: Jul 30, 2012 Recent Foreign Travel: No Contact w/Someone Who Travel: No Recent Hopitalizations: No Immunizations Up To Date Tetanus Booster (TDap): Unknown Date of Pneumonia Vaccine: Aug 13, 2013 Date of Influenza Vaccine: May 16, 2017 Seasonal Allergies Seasonal Allergies: No Past Medical History Surgeries: Yes (right CEA, knee sx x5, right foot sx, hernia sx, lower back sx) Appendectomy, Orthopedic, Vascular Surgery Respiratory: No Cardiac: Yes (ANGIOPLASTY ', HIGH LIPIDS, CAROTID STENOSIS ) High Cholesterol, Peripheral Vascular Neurological: Yes (YEARS AGO BAD HEADACHES, DIZZY SPELLS/FAINTING) Seizure Disorder, Stroke Reproductive Disorders: No Genitourinary: Yes Kidney Stones, UTI-Chronic Gastrointestinal: Yes Gastroesophageal Reflux Musculoskeletal: Yes (ARTHRITIS HANDS, KNEES; SCIATIC NERVE SURG ) Arthritis Endocrine: No Dysphagia Loss of Vision: Denies Hearing Impairment: Denies Cancer: No Psychosocial: No Integumentary: No Blood Disorders: No Adverse Reaction/Blood Tranf: No Family Medical History Alzheimer's disease Uncle FH: CVA (cerebrovascular accident) Uncle Uncle FH: coronary artery disease 19 FATHER G8 BROTHER FH: lung cancer G8 BROTHER FH: uterine cancer Aunt Hypertension G8 BROTHER Myocardial infarction 19 FATHER Vertigo Uncle Aunt Physical Exam Vital Signs Vital Signs - First Documented 04/18/18 11:05 Temp 97.0 Pulse 80 Resp 16 B/P (MAP) 152/98 (116) Pulse Ox 95 Capillary Refill : Height, Weight, BMI Height: 6'2.00" Weight: 200lbs. 0.0oz. [id number]; 25.7 BMI Method:Stated General Appearance: WD/WN, no apparent distress HEENT: PERRL/EOMI, normal ENT inspection Neck: non-tender, full range of motion Respiratory: no respiratory distress, no accessory muscle use Gastrointestinal: normal bowel sounds, other ( firm in the suprapubic region. There is apparent tenderness as he does attempt to grab my hand when I press in the suprapubic region) Extremities: normal range of motion, non-tender Neurologic/Psychiatric: alert, normal mood/affect, oriented x 3 Skin: normal color, warm/dry Progress/Results/Core Measures Suspected Sepsis SIRS Temperature: Pulse: Respiratory Rate: Laboratory Tests 04/18/18 10:36: White Blood Count 3.9L Blood Pressure / Mean: Laboratory Tests 04/18/18 10:36: Creatinine 0.95, Platelet Count 202 Results/Orders Lab Results Laboratory Tests Test 04/18/18 10:36 04/18/18 13:06 Range/Units White Blood Count 3.9 L 4.3-11.0 10^3/uL Red Blood Count 4.65 4.35-5.85 10^6/uL Hemoglobin 14.5 13.3-17.7 G/DL Hematocrit 42 40-54 % Mean Corpuscular Volume 90 80-99 FL Mean Corpuscular Hemoglobin 31 25-34 PG Mean Corpuscular Hemoglobin Concent 35 32-36 G/DL Red Cell Distribution Width 14.9 H 10.0-14.5 % Platelet Count 202 130-400 10^3/uL Mean Platelet Volume 10.3 7.4-10.4 FL Neutrophils (%) (Auto) 57 42-75 % Lymphocytes (%) (Auto) 24 12-44 % Monocytes (%) (Auto) 16 H 0-12 % Eosinophils (%) (Auto) 3 0-10 % Basophils (%) (Auto) 0 0-10 % Neutrophils # (Auto) 2.2 1.8-7.8 X 10^3 Lymphocytes # (Auto) 0.9 L 1.0-4.0 X 10^3 Monocytes # (Auto) 0.6 0.0-1.0 X 10^3 Eosinophils # (Auto) 0.1 0.0-0.3 10^3/uL Basophils # (Auto) 0.0 0.0-0.1 10^3/uL Sodium Level 137 135-145 MMOL/L Potassium Level 4.8 3.6-5.0 MMOL/L Chloride Level 110 H 98-107 MMOL/L Carbon Dioxide Level 20 L 21-32 MMOL/L Anion Gap 7 5-14 MMOL/L Blood Urea Nitrogen 17 7-18 MG/DL Creatinine 0.95 0.60-1.30 MG/DL Estimat Glomerular Filtration Rate > 60 BUN/Creatinine Ratio 18 Glucose Level 98 70-105 MG/DL Calcium Level 9.1 8.5-10.1 MG/DL Urine Color YELLOW Urine Clarity SLIGHTLY CLOUDY Urine pH 6 5-9 Urine Specific [place] 1.015 L 1.016-1.022 Urine Protein NEGATIVE NEGATIVE Urine Glucose (UA) NEGATIVE NEGATIVE Urine Ketones NEGATIVE NEGATIVE Urine Nitrite NEGATIVE NEGATIVE Urine Bilirubin NEGATIVE NEGATIVE Urine Urobilinogen NORMAL NORMAL MG/DL Urine Leukocyte Esterase NEGATIVE NEGATIVE Urine RBC (Auto) NEGATIVE NEGATIVE Urine RBC RARE /HPF Urine WBC RARE /HPF Urine Crystals NONE /LPF Urine Bacteria NEGATIVE /HPF Urine Casts NONE /LPF Urine Mucus NEGATIVE /LPF Urine Culture Indicated NO My Orders Orders - PHILIPP BEJARANO SOUND TESTER Cbc With Automated Diff (04/18/18 10:21) Basic Metabolic Panel (04/18/18 10:21) Ua Culture If Indicated (04/18/18 10:21) Lidocaine 2% (Urojet) (Xylocaine Urojet) (04/18/18 10:45) Begum Cath (04/18/18 10:32) Ns Iv 1000 Ml (Sodium Chloride 0.9%) (04/18/18 11:15) Ct Abd/Pelvis Wo(Kidney Stone) (04/18/18 11:10) Medications Given in ED Current Medications Medications Dose Ordered Sig/Jn Route Start Time Stop Time Status Last Admin Dose Admin Lidocaine HCl 10 ml ONCE ONCE TOP 04/18/18 10:45 04/18/18 10:46 DC 04/18/18 12:50 10 ML Vital Signs/I&O 04/18/18 11:05 Temp 97.0 Pulse 80 Resp 16 B/P (MAP) 152/98 (116) Pulse Ox 95 Capillary Refill : Diagnostic Imaging Diagonstic Imaging: CT Comments NAME: [facility]FINN [facility] REC#: [id number] PT STATUS: REG ER : 1950 PHYSICIAN: PHILIPP BEJARANO SOUND TESTER ADMIT DATE: 04/18/18/ER Draft Date of Exam:04/18/18 CT ABD/PELVIS WO(KIDNEY STONE) PROCEDURE: CT urinary tract, rule out kidney stone. TECHNIQUE: Multiple contiguous axial images were obtained through the abdomen and pelvis without the use of intravenous contrast. INDICATION: History of kidney stones. Patient complains of vomiting. Comparison is made with prior CT from 10/29/2017. The lung bases are clear. Previously noted low-density lesions in the liver are again noted suggestive of cysts. Largest lesion approximately 6.1 x 4.0 cm compared with 7.5 x 5.4 cm. No new liver lesion is seen. Gallbladder is unremarkable. There is no biliary ductal dilatation. Previously noted ill-defined low density in the region of the neck of the pancreas is not as well seen on today's study. The spleen is unremarkable. No adrenal mass is detected. Right kidney is unremarkable apart from a tiny cortical low density, too small to characterize but most likely a cyst. This is stable when compared to prior study. Nonobstructive calculi lower pole left kidney are again noted. Previously noted 6 mm ureteral calculus has progressed more distally but remains within the ureter approximately 5 cm proximal to the UVJ. No significant hydronephrosis is identified, however. Aorta remains aneurysmal measuring approximately 3.6 cm AP x 4.0 cm transverse this compares with 3.7 cm x 3.8 cm on prior. No periaortic fluid collection is seen. Small and large bowel loops are normal caliber, without evidence of obstruction. There is no ascites. Bladder is unremarkable. Fat-containing left inguinal hernia is seen. Bony structures are not acute. IMPRESSION: 1. Decrease in size of dominant hepatic cyst since prior CT. 2. Nonobstructing left renal calculi. Previously noted left ureteral calculus has progressed more distally in the left ureter, as described, however, no significant hydronephrosis is seen on today's study. 3. Stable infrarenal abdominal aortic aneurysm. 4. Fat-containing left inguinal hernia. Dictated on workstation # [id number] Dict: 04/18/18 1148 Trans: 04/18/[address] [place] [address] [id number] Interpreted by: URBANO LEWIS MD Electronically signed by: Departure Communication (Admissions) 1109-despite not having urinated since yesterday afternoon his bladder scan only showed 365ml urine. 1329 after 1 L bolus of fluids he is still unable to urinate despite his best efforts. I was able to insert a 18 Cambodian coud catheter with minimal resistance. Impression Primary Impression: Urinary retention Additional Impression: Left ureteral stone Disposition: HOME, SELF-CARE Condition: Stable (ERASED) Departure-Patient Inst. Decision time for Depature: 13:30 Referrals: NO,LOCAL PHYSICIAN (PCP) Primary Care Physician CARYN NEWMAN (Family) Primary Care Physician Patient Instructions: Urinary Retention Add. Discharge Instructions: 1. Return to ER for any concerns 2. Follow-up with Dr. Flores within the next 5 days. Leave the Begum catheter in place until he directs you otherwise. Copy Copies To 1: NATHANAEL ALTAMIRANO MD, PETER J APRN Apr 18, 2018 10:35
[2018-04-18] MEDS ORDERED: LIDOCAINE UROJET 2% GEL 10 ML PKG TOP ONE (10:45)
[2018-04-18 10:46] LABS: BASOPHILS % (AUTO) 0 % (0-10); EOSINOPHILS # (AUTO) 0.1 10^3/uL (0.0-0.3); EOSINOPHILS % (AUTO) 3 % (0-10); HEMATOCRIT 42 % (40-54); HEMOGLOBIN 14.5 G/DL (13.3-17.7); LYMPHOCYTES # (AUTO) 0.9 X 10^3 (1.0-4.0); LYMPHOCYTES % (AUTO) 24 % (12-44); MEAN CORPUSCULAR HEMOGLOBIN 31 PG (25-34); MEAN CORPUSCULAR HGB CONC 35 G/DL (32-36); MEAN CORPUSCULAR VOLUME 90 FL (80-99); MEAN PLATELET VOLUME 10.3 FL (7.4-10.4); MONOCYTES # (AUTO) 0.6 X 10^3 (0.0-1.0); MONOCYTES % (AUTO) 16 % (0-12); NEUTROPHILS # (AUTO) 2.2 X 10^3 (1.8-7.8); NEUTROPHILS % (AUTO) 57 % (42-75); PLATELET COUNT 202 10^3/uL (130-400); RED BLOOD COUNT 4.65 10^6/uL (4.35-5.85); RED CELL DISTRIBUTION WIDTH 14.9 % (10.0-14.5); WHITE BLOOD COUNT 3.9 10^3/uL (4.3-11.0)
[2018-04-18 11:06] LABS: BUN/CREATININE RATIO 18; CALCIUM 9.1 MG/DL (8.5-10.1); CARBON DIOXIDE 20 MMOL/L (21-32); CHLORIDE 110 MMOL/L (98-107); CREATININE SERUM 0.95 MG/DL (0.60-1.30); GFR ESTIMATED > 60; GLUCOSE 98 MG/DL (70-105); POTASSIUM 4.8 MMOL/L (3.6-5.0); SODIUM 137 MMOL/L (135-145)
[2018-04-18] MEDS ORDERED: NS IV 1000 ML 1,000 ML IV SCH (11:15)
--- NOTE | 2018-04-18 12:00 | Diagnostic Imaging Report ---
PROCEDURE: CT urinary tract, rule out kidney stone. TECHNIQUE: Multiple contiguous axial images were obtained through the abdomen and pelvis without the use of intravenous contrast. INDICATION: History of kidney stones. Patient complains of vomiting. Comparison is made with prior CT from 10/29/2017. The lung bases are clear. Previously noted low-density lesions in the liver are again noted suggestive of cysts. Largest lesion approximately 6.1 x 4.0 cm compared with 7.5 x 5.4 cm. No new liver lesion is seen. Gallbladder is unremarkable. There is no biliary ductal dilatation. Previously noted ill-defined low density in the region of the neck of the pancreas is not as well seen on today's study. The spleen is unremarkable. No adrenal mass is detected. Right kidney is unremarkable apart from a tiny cortical low density, too small to characterize but most likely a cyst. This is stable when compared to prior study. Nonobstructive calculi lower pole left kidney are again noted. Previously noted 6 mm ureteral calculus has progressed more distally but remains within the ureter approximately 5 cm proximal to the UVJ. No significant hydronephrosis is identified, however. Aorta remains aneurysmal measuring approximately 3.6 cm AP x 4.0 cm transverse this compares with 3.7 cm x 3.8 cm on prior. No periaortic fluid collection is seen. Small and large bowel loops are normal caliber, without evidence of obstruction. There is no ascites. Bladder is unremarkable. Fat-containing left inguinal hernia is seen. Bony structures are not acute. IMPRESSION: 1. Decrease in size of dominant hepatic cyst since prior CT. 2. Nonobstructing left renal calculi. Previously noted left ureteral calculus has progressed more distally in the left ureter, as described, however, no significant hydronephrosis is seen on today's study. 3. Stable infrarenal abdominal aortic aneurysm. 4. Fat-containing left inguinal hernia. Dictated by: Dictated on workstation # [id number]
[2018-04-18 13:19] LABS: BILIRUBIN,URINE NEGATIVE (NEGATIVE); CLARITY,URINE SLIGHTLY CLOUDY; COLOR,URINE YELLOW; GLUCOSE, URINE (UA) NEGATIVE (NEGATIVE); KETONES,URINE NEGATIVE (NEGATIVE); LEUKOCYTE ESTERASE ,URINE NEGATIVE (NEGATIVE); NITRITE,URINE NEGATIVE (NEGATIVE); PH,URINE 6 (5-9); PROTEIN,URINE NEGATIVE (NEGATIVE); UROBILINOGEN,URINE NORMAL (NORMAL)
[2018-04-18 13:31] LABS: BACTERIA,URINE NEGATIVE /HPF; RBC,URINE RARE /HPF; WBC,URINE RARE /HPF
[2018-04-18 14:02] VITALS: BP 125/84
== END 2018-04-18 14:01 | disposition home or self-care (01) ==
LOC: EDUNIT# 10:08 → ER 10:09
DX: N20.2 Calculus of kidney with calculus of ureter (principal); E78.00 Pure hypercholesterolemia, unspecified; I73.9 Peripheral vascular disease, unspecified; G40.909 Epilepsy, unspecified, not intractable, without status epilepticus; K21.9 Gastro-esophageal reflux disease without esophagitis; Z82.49 Family history of ischemic heart disease and other diseases of the circulatory system; Z80.1 Family history of malignant neoplasm of trachea, bronchus and lung; Z80.49 Family history of malignant neoplasm of other genital organs; Z87.442 Personal history of urinary calculi; Z98.61 Coronary angioplasty status; Z88.8 Allergy status to other drugs, medicaments and biological substances; Z86.73 Personal history of transient ischemic attack (TIA), and cerebral infarction without residual deficits; Z87.891 Personal history of nicotine dependence; Z87.19 Personal history of other diseases of the digestive system; Z90.89 Acquired absence of other organs
CPT/HCPCS: 36415; 51702; 74176; 80048; 81000; 85025; 96360; 96361

== ENCOUNTER → 2018-05-06 | Outpatient (CLI) | payer MEDICARE, OTHER ==
--- NOTE | 2018-05-06 16:08 | Diagnostic Imaging Report ---
INDICATION: Urinary tract calculi. Comparison is made to study of 11/22/2017. FINDINGS: There has been an increase in stone burden in the mid to lower pole of the left kidney with largest calculus reaching approximately 0.5 cm. There may be additional fragments adjacent to the dominant fragment compared to previous study. There is a small elongated calcification projected over the left sacrum measuring 0.7 cm in length which may represent distal ureteric stone. No definite right calculus is identified. IMPRESSION: 1. Increased conspicuity of calcific fragments projecting over the left kidney compatible with increased number of stones. This may be due to fragmentation of larger calculus. 2. Probable 0.7 cm stone is seen within the distal left ureter region. Dictated by: Dictated on workstation # [id number]
== END ==
LOC: RAD 15:37
PROVIDERS: ATTEND Urology
DX: N20.1 Calculus of ureter (principal)
CPT/HCPCS: 74018

== ENCOUNTER → 2018-10-14 | Outpatient (CLI) | payer MEDICARE, OTHER ==
--- NOTE | 2018-10-14 18:24 | Diagnostic Imaging Report ---
KUB obtained at 4:37 p.m. and compared to 05/06/2018. FINDINGS: Abdominal bowel gas pattern is unremarkable. There is moderate stool throughout the colon. There is a small calcification overlying the lower pole of the left kidney. The calcification overlying the left side of the pelvis is no longer definitely apparent. IMPRESSION: Unremarkable bowel gas pattern with moderate stool in the colon. Calcification overlying lower pole of left kidney is noted. Previous questioned left ureteral stone is no longer visualized, correlate with CT if clinically warranted. Dictated by: Dictated on workstation # [id number]
== END ==
LOC: RAD 16:27
PROVIDERS: ATTEND Urology
DX: N28.89 Other specified disorders of kidney and ureter (principal)
CPT/HCPCS: 74018

== ENCOUNTER 2019-01-17 09:08 | Emergency (ER) | payer MEDICARE, OTHER ==
[~2019-01-17] VITALS: Ht 188 cm; Wt 90.7 kg
[2019-01-17] MEDS ORDERED: LIDOCAINE UROJET 2% GEL 10 ML PKG TOP ONE (10:00)
--- NOTE | 2019-01-17 10:00 | NUR ---
Unable to advance 16Fr sharma catheter d/t resistance met.
[2019-01-17 10:38] LABS: BILIRUBIN,URINE NEGATIVE (NEGATIVE); CLARITY,URINE CLEAR; COLOR,URINE YELLOW; GLUCOSE, URINE (UA) NEGATIVE (NEGATIVE); KETONES,URINE NEGATIVE (NEGATIVE); LEUKOCYTE ESTERASE ,URINE 1+ (NEGATIVE); NITRITE,URINE NEGATIVE (NEGATIVE); PH,URINE 5 (5-9); PROTEIN,URINE 2+ (NEGATIVE); UROBILINOGEN,URINE NORMAL (NORMAL)
[2019-01-17 10:45] LABS: BACTERIA,URINE NEGATIVE /HPF
--- NOTE | 2019-01-17 11:33 | ED GU-Female ---
General Chief Complaint: - Urinary Stated Complaint: TROUBLE URINATING Nursing Triage Note: Pt to room #8 via personal electric w/c w/o difficulty. c/o difficulty urinating since approx 0200 this am. @ side reports pt woke her this morning to urinate and has been unable to void. reports approx 4 years ago pt experienced stroke affected rt side and speach. denies recenet fever or chills. Pt alert and able to verbalize needs. Pt noted to be anxious, but easily reassured by @ side. Nursing Sepsis Screen: No Definite Risk Source: patient, family Exam Limitations: clinical condition History of Present Illness Date Seen by Provider: Jan 17, 2019 Time Seen by Provider: 09:28 Initial Comments This 68-year-old gentleman presents to the emergency room as referred by Dr. Altamirano's office for urinary obstruction. Patient has been unable to urinate since around 02:00. He appears rather uncomfortable. Dr. Altamirano's office contacted this provider and requested that we place a Begum catheter and obtain urinalysis. Patient has history of urinary obstruction in the past. See history above in nursing triage note. Allergies and Home Medications Allergies Coded Allergies: butorphanol (Unverified Adverse Reaction, Unknown, 09/13/14) HALLUCINATIONS fentanyl (Verified Adverse Reaction, Unknown, hallucinations, 04/03/16) nalbuphine (Unverified Adverse Reaction, Unknown, 09/13/14) HALLUCINATIONS Home Medications Ascorbate Calcium 500 Mg Tablet, 500 MG PO BID, (Reported) Baclofen 10 Mg Tablet, 10 MG PO DAILY, (Reported) Carbamazepine 200 Mg Tablet, 200 MG PO BID, (Reported) Ciprofloxacin HCl 500 Mg Tablet, 500 MG PO BID Prescribed by: JOSE VARGAS on 11/07/17 1027 Dextromethorphan HBr/Quinidine 1 Each Capsule, 1 TAB PO BID, (Reported) Diphenhydramine HCl 25 Mg Tablet, 25 MG PO BID, (Reported) Docusate Sodium 100 Mg Capsule, 100 MG PO BID, (Reported) Dutasteride 0.5 Mg Cap, 0.5 MG PO HS, (Reported) Fluoxetine HCl 20 Mg Capsule, 20 MG PO DAILY, (Reported) Gabapentin 300 Mg Capsule, 300 MG PO HS, (Reported) Hydrocodone/Acetaminophen 1 Each Tablet, 1 EACH PO Q4H PRN for PAIN-MODERATE TO SEVERE Prescribed by: PHILIPP BEJARANO on 10/29/171616 Hydrocodone/Acetaminophen 1 Each Tablet, 1-2 TAB PO Q4H PRN for PAIN Prescribed by: JOSE VARGAS on 11/07/17 102 Lorazepam 1 Mg Tablet, 1 MG PO HS, (Reported) Multivitamin 1 Each Tablet, 1 EACH PO DAILY, (Reported) Omeprazole 20 Mg Tablet.dr, 20 MG PO DAILY, (Reported) Rosuvastatin Calcium 5 Mg Tablet, 10 MG PO HS, (Reported) Sulfamethoxazole/Trimethoprim 1 Each Tablet, 1 EACH PO HS, (Reported) Sulfamethoxazole/Trimethoprim 1 Each Tablet, 1 EACH PO BID Prescribed by: PHILIPP BEJARANO on 10/29/171616 Tamsulosin HCl 0.4 Mg Cap, 0.4 MG PO DAILY Prescribed by: JOSE VARGAS on 11/07/17 102 Vitamin B Complex 1 Each Capsule, 1 EACH PO DAILY, (Reported) Patient Home Medication List Home Medication List Reviewed: Yes Review of Systems Review of Systems Constitutional: no symptoms reported EENTM: no symptoms reported Respiratory: no symptoms reported Cardiovascular: no symptoms reported Gastrointestinal: no symptoms reported Genitourinary: see HPI Musculoskeletal: no symptoms reported Skin: no symptoms reported Psychiatric/Neurological: See HPI Endocrine: No Symptoms Reported Hematologic/Lymphatic: No Symptoms Reported Past Zvbxqav-Lqplyk-Fikerk Hx Past Med/Social Hx: Reviewed Nursing Past Med/Soc Hx Patient Social History Alcohol Use: Denies Use Recreational Drug Use: No Smoking Status: Former Smoker Type Used: Cigarettes Former Smoker, Quit: Jul 30, 2012 2nd Hand Smoke Exposure: No Recent Foreign Travel: No Contact w/Someone Who Travel: No Recent Infectious Disease Expo: No Recent Hopitalizations: No Immunizations Up To Date Tetanus Booster (TDap): Unknown Date of Pneumonia Vaccine: Aug 13, 2013 Date of Influenza Vaccine: May 16, 2017 Seasonal Allergies Seasonal Allergies: No Past Medical History Surgeries: Yes (RIGHT CEA, KNEE SX x5, RIGHT FOOT SX, HERNIA SX, LOWER BACK SX) Appendectomy, Cardiac, Orthopedic, Vascular Surgery Respiratory: No Cardiac: Yes (ANGIOPLASTY '96, HIGH LIPIDS, CAROTID STENOSIS ) Coronary Artery Disease, High Cholesterol, Peripheral Vascular Neurological: Yes (YEARS AGO BAD HEADACHES, DIZZY SPELLS/FAINTING, R ARM CONTRACTION) Seizure Disorder, Stroke Reproductive Disorders: No Genitourinary: Yes Benign Prostatic Hyperpl, Kidney Stones, UTI-Chronic Gastrointestinal: Yes (HX OF A FEEDING TUBE) Gastroesophageal Reflux Musculoskeletal: Yes (ARTHRITIS HANDS, KNEES; SCIATIC NERVE SURG ) Arthritis Endocrine: No Dysphagia Loss of Vision: Denies Hearing Impairment: Denies Cancer: No Psychosocial: Yes Anxiety Integumentary: No Blood Disorders: No Adverse Reaction/Blood Tranf: No Family Medical History Alzheimer's disease Uncle FH: CVA (cerebrovascular accident) Uncle Uncle FH: coronary artery disease 19 FATHER G8 BROTHER FH: lung cancer G8 BROTHER FH: uterine cancer Aunt Hypertension G8 BROTHER Myocardial infarction 19 FATHER Vertigo Uncle Aunt Physical Exam Vital Signs Vital Signs - First Documented 01/17/19 09:10 Temp 97.1 Pulse 104 Resp 18 B/P (MAP) 137/89 (105) Pulse Ox 97 O2 Delivery Room Air Capillary Refill : Less Than 3 Seconds Height, Weight, BMI Height: 6'2.00" Weight: 200lbs. 0.0oz. [id number]; 25.7 BMI Method:Stated General Appearance: WD/WN, moderate distress HEENT: normal ENT inspection Neck: normal inspection Cardiovascular: regular rate, rhythm, no edema, no murmur Respiratory: lungs clear, normal breath sounds, no respiratory distress, no accessory muscle use Gastrointestinal: normal bowel sounds, soft, tenderness (Suprapubic) Genital/Rectal: normal genital exam Back: normal inspection Extremities: normal inspection, no pedal edema Neurologic/Psychiatric: other (Speech deficits and right-sided motor deficits, chronic and unchanged) Skin: normal color, warm/dry Progress/Results/Core Measures Suspected Sepsis Recent Fever Within 48 Hours: No Infection Criteria Present: None New/Unexplained Altered Menta: No Sepsis Screen: No Definite Risk SIRS Temperature:97.1 Pulse: 104 Respiratory Rate: 18 Blood Pressure 137 /89 Mean: 105 Results/Orders Lab Results Laboratory Tests Test 01/17/19 10:30 Range/Units Urine Color YELLOW Urine Clarity CLEAR Urine pH 5 5-9 Urine Specific [place] 1.025 H 1.016-1.022 Urine Protein 2+ H NEGATIVE Urine Glucose (UA) NEGATIVE NEGATIVE Urine Ketones NEGATIVE NEGATIVE Urine Nitrite NEGATIVE NEGATIVE Urine Bilirubin NEGATIVE NEGATIVE Urine Urobilinogen NORMAL NORMAL MG/DL Urine Leukocyte Esterase 1+ H NEGATIVE Urine RBC (Auto) 3+ H NEGATIVE Urine RBC 5-10 H /HPF Urine WBC NONE /HPF Urine Squamous Epithelial Cells NONE /HPF Urine Crystals NONE /LPF Urine Bacteria NEGATIVE /HPF Urine Casts NONE /LPF Urine Mucus NEGATIVE /LPF Urine Culture Indicated NO My Orders Orders - YONAS SANDERS MD Begum Cath (01/17/19 09:28) Ua Culture If Indicated (01/17/19 09:28) Lidocaine 2% (Urojet) (Xylocaine Urojet) (01/17/19 10:00) Medications Given in ED Current Medications Medications Dose Ordered Sig/Jn Route Start Time Stop Time Status Last Admin Dose Admin Lidocaine HCl 10 ml ONCE ONCE TOP 01/17/19 10:00 01/17/19 10:01 DC 01/17/19 10:30 10 ML Vital Signs/I&O 01/17/19 01/17/19 09:10 11:51 Temp 97.1 97.1 Pulse 104 104 Resp 18 18 B/P (MAP) 137/89 (105) 101/88 (92) Pulse Ox 97 97 O2 Delivery Room Air Room Air Capillary Refill : Less Than 3 Seconds Blood Pressure Mean: 105 Progress Note : Progress Note A Begum catheter placement was attempted but failed. A smaller coude catheter placement was successful. Catheter was placed by nursing staff using Urojet. UA demonstrated no evidence of infection. Patient was dismissed into the care of his . Departure Impression Primary Impression: Urinary obstruction Disposition: 01 HOME, SELF-CARE Condition: Improved Departure-Patient Inst. Decision time for Depature: 11:10 Referrals: CARYN NEWMAN (PCP/Family) Primary Care Physician Patient Instructions: How to Care for Your Begum Catheter, Male Add. Discharge Instructions: Empty the urine bag frequently. Follow-up with Dr. Altamirano January 20 at 2:30. Return to care if you have any other problems or concerns. All discharge instructions reviewed with patient and/or family. Voiced understanding. Copy Copies To 1: NATHANAEL ALTAMIRANO MD, JOSHUA T MD Jan 17, 2019 11:33
[2019-01-17 11:51] VITALS: BP 101/88
--- OUTSIDE RECORDS SUMMARY | 2019-01-17 13:34 | XMS REPORT | Continuity of Care Document ---
Author Organization Unknown Address Unknown Allergies Active Description Code Type Severity Reaction Onset Reported/Identified Relationship to Patient Clinical Status Yes butorphanol [id number] Drug Allergy Unknown N/A 09/13/2014 Yes nalbuphine [id number] Drug Allergy Unknown N/A 09/13/2014 Yes fentanyl [id number] Drug Allergy Unknown hallucinations 04/03/2016 Medications There is no data. Problems Date Dx Coded Attending Type Code Diagnosis Diagnosed By 09/17/2014 LUIS ALBERTO KRUEGER, NELSON E Ot 008.45 09/17/2014 LUIS ALBERTO KRUEGER, NELSON E Ot 272.4 09/17/2014 LUIS ALBERTO KRUEGER, NELSON E Ot 305.1 09/17/2014 LUIS ALBERTO KRUEGER, NELSON E Ot 345.90 09/17/2014 LUIS ALBERTO KRUEGER, NELSON E Ot 433.10 09/17/2014 LUIS ALBERTO KRUEGER, NELSON E Ot 433.30 09/17/2014 LUIS ALBERTO KRUEGER, NELSON E Ot 438.11 09/17/2014 LUIS ALBERTO KRUEGER, NELSON E Ot 438.20 09/17/2014 LUIS ALBERTO KRUEGER, NELSON E Ot 438.82 09/17/2014 LUIS ALBERTO KRUEGER, NELSON E Ot 438.89 09/17/2014 LUIS ALBERTO KRUEGER, NELSON E Ot 530.81 09/17/2014 LUIS ALBERTO KRUEGER, NELSON E Ot 787.20 09/17/2014 LUIS ALBERTO KRUEGER, NELSON E Ot V57.89 09/17/2014 LUIS ALBERTO KRUEGER, NELSON E Ot 008.45 09/17/2014 LUIS ALBERTO KRUEGER, NELSON E Ot 272.4 09/17/2014 LUIS ALBERTO KRUEGER, NELSON E Ot 305.1 09/17/2014 LUIS ALBERTO KRUEGER, NELSON E Ot 345.90 09/17/2014 LUIS ALBERTO KRUEGER, NELSON E Ot 433.10 09/17/2014 LUIS ALBERTO KRUEGER, NELSON E Ot 433.30 09/17/2014 LUIS ALBERTO KRUEGER, NELSON E Ot 438.11 09/17/2014 LUIS ALBERTO KRUEGER, NELSON E Ot 438.20 09/17/2014 LUIS ALBERTO KRUEGER, NELSON E Ot 438.82 09/17/2014 LUIS ALBERTO KRUEGER, NELSON E Ot 438.89 09/17/2014 LUIS ALBERTO KRUEGER, NELSON E Ot 530.81 09/17/2014 LUIS ALBERTO KRUEGER, NELSON E Ot 787.20 09/17/2014 LUIS ALBERTO KRUEGER, NELSON E Ot V57.89 09/18/2014 LUIS ALBERTO KRUEGER, NELSON E Ot 008.45 09/18/2014 LUIS ALBERTO KRUEGER, NELSON E Ot 272.4 09/18/2014 LUIS ALBERTO KRUEGER, NELSON E Ot 305.1 09/18/2014 LUIS ALBERTO KRUEGER, NELSON E Ot 345.90 09/18/2014 LUIS ALBERTO KRUEGER, NELSON E Ot 433.10 09/18/2014 LUIS ALBERTO KRUEGER, NELSON E Ot 433.30 09/18/2014 LUIS ALBERTO KRUEGER, NELSON E Ot 438.11 09/18/2014 LUIS ALBERTO KRUEGER, NELSON E Ot 438.20 09/18/2014 LUIS ALBERTO KRUEGER, NELSON E Ot 438.82 09/18/2014 LUIS ALBERTO KRUEGER, NELSON E Ot 438.89 09/18/2014 LUIS ALBERTO KRUEGER, NELSON E Ot 530.81 09/18/2014 LUIS ALBERTO KRUEGER, NELSON E Ot 787.20 09/18/2014 LUIS ALBERTO KRUEGER, NELSON E Ot V57.89 09/19/2014 LUIS ALBERTO KRUEGER, NELSON E Ot 008.45 09/19/2014 LUIS ALBERTO KRUEGER, NELSON E Ot 272.4 09/19/2014 LUIS ALBERTO KRUEGER, NELSON E Ot 305.1 09/19/2014 LUIS ALBERTO KRUEGER, NELSON E Ot 345.90 09/19/2014 LUIS ALBERTO KRUEGER, NELSON E Ot 433.10 09/19/2014 LUIS ALBERTO KRUEGER, NELSON E Ot 433.30 09/19/2014 LUIS ALBERTO KRUEGER, NELSON E Ot 438.11 09/19/2014 LUIS ALBERTO KRUEGER, NELSON E Ot 438.20 09/19/2014 LUIS ALBERTO KRUEGER, NELSON E Ot 438.82 09/19/2014 LUIS ALBERTO KRUEGER, NELSON E Ot 438.89 09/19/2014 LUIS ALBERTO KRUEGER, NELSON E Ot 530.81 09/19/2014 LUIS ALBERTO KRUEGER, NELSON E Ot 787.20 09/19/2014 LUIS ALBERTO KRUEGER, NELSON E Ot V57.89 09/20/2014 LUIS ALBERTO KRUEGER, NELSON E Ot 008.45 09/20/2014 LUIS ALBERTO KRUEGER, NELSON E Ot 272.4 09/20/2014 LUIS ALBERTO KRUEGER, NELSON E Ot 305.1 09/20/2014 LUIS ALBERTO KRUEGER, NELSON E Ot 345.90 09/20/2014 LUIS ALBERTO KRUEGER, NELSON E Ot 433.10 09/20/2014 LUIS ALBERTO KRUEGER, NELSON E Ot 433.30 09/20/2014 LUIS ALBERTO KRUEGER, NELSON E Ot 438.11 09/20/2014 LUIS ALBERTO KRUEGER, NELSON E Ot 438.20 09/20/2014 LUIS ALBERTO KRUEGER, NELSON E Ot 438.82 09/20/2014 LUIS ALBERTO KRUEGER, NELSON E Ot 438.89 09/20/2014 LUIS ALBERTO KRUEGER, NELSON E Ot 530.81 09/20/2014 LUIS ALBERTO KRUEGER, NELSON E Ot 787.20 09/20/2014 LUIS ALBERTO KRUEGER, NELSON E Ot V57.89 09/21/2014 LUIS ALBERTO KRUEGER, NELSON E Ot 008.45 09/21/2014 LUIS ALBERTO KRUEGER, NELSON E Ot 272.4 09/21/2014 LUIS ALBERTO KRUEGER, NELSON E Ot 305.1 09/21/2014 LUIS ALBERTO KRUEGER, NELSON E Ot 345.90 09/21/2014 LUIS ALBERTO KRUEGER, NELSON E Ot 433.10 09/21/2014 LUIS ALBERTO KRUEGER, NELSON E Ot 433.30 09/21/2014 LUIS ALBERTO KRUEGER, NELSON E Ot 438.11 09/21/2014 LUIS ALBERTO KRUEGER, NELSON E Ot 438.20 09/21/2014 LUIS ALBERTO KRUEGER, NELSON E Ot 438.82 09/21/2014 LUIS ALBERTO KRUEGER, NELSON E Ot 438.89 09/21/2014 LUIS ALBERTO KRUEGER, NELSON E Ot 530.81 09/21/2014 LUIS ALBERTO KRUEGER, NELSON E Ot 787.20 09/21/2014 LUIS ALBERTO KRUEGER, NELSON E Ot V57.89 09/22/2014 LUIS ALBERTO KRUEGER, NELSON E Ot 008.45 09/22/2014 LUIS ALBERTO KRUEGER, NELSON E Ot 272.4 09/22/2014 LUIS ALBERTO KRUEGER, NELSON E Ot 305.1 09/22/2014 LUIS ALBERTO KRUEGER, NELSON E Ot 345.90 09/22/2014 LUIS ALBERTO KRUEGER, NELSON E Ot 433.10 09/22/2014 LUIS ALBERTO KRUEGER, NELSON E Ot 433.30 09/22/2014 LUIS ALBERTO KRUEGER, NELSON E Ot 438.11 09/22/2014 LUIS ALBERTO KRUEGER, NELSON E Ot 438.20 09/22/2014 LUIS ALBERTO KRUEGER, NELSON E Ot 438.82 09/22/2014 LUIS ALBERTO KRUEGER, NELSON E Ot 438.89 09/22/2014 LUIS ALBERTO KUREGER, NELSON E Ot 530.81 09/22/2014 LUIS ALBERTO KRUEGER, NELSON E Ot 787.20 09/22/2014 LUIS ALBERTO KRUEGER, NELSON E Ot V57.89 09/23/2014 LUIS ALBERTO KRUEGER, NELSON E Ot 008.45 09/23/2014 LUIS ALBERTO KRUEGER, NELSON E Ot 272.4 09/23/2014 LUIS ALBERTO KRUEGER, NELSON E Ot 305.1 09/23/2014 LUIS ALBERTO KRUEGER, NELSON E Ot 345.90 09/23/2014 LUIS ALBERTO KRUEGER, NELSON E Ot 433.10 09/23/2014 LUIS ALBERTO KRUEGER, NELSON E Ot 433.30 09/23/2014 LUIS ALBERTO KRUEGER, NELSON E Ot 438.11 09/23/2014 LUIS ALBERTO KRUEGER, NELSON E Ot 438.20 09/23/2014 LUIS ALBERTO KRUEGER, NELSON E Ot 438.82 09/23/2014 LUIS ALBERTO KRUEGER, NELSON E Ot 438.89 09/23/2014 LUIS ALBERTO KRUEGER, NELSON E Ot 530.81 09/23/2014 LUIS ALBERTO KRUEGER, NELSON E Ot 787.20 09/23/2014 LUIS ALBERTO KRUEGER, NELSON E Ot V57.89 09/24/2014 LUIS ALBERTO KRUEGER, NELSON E Ot 008.45 09/24/2014 LUIS ALBERTO KRUEGER, NELSON E Ot 272.4 09/24/2014 LUIS ALBERTO KRUEGER, NELSON E Ot 305.1 09/24/2014 LUIS ALBERTO KRUEGER, NELSON E Ot 345.90 09/24/2014 LUIS ALBERTO KRUEGER, NELSON E Ot 433.10 09/24/2014 LUIS ALBERTO KRUEGER, NELSON E Ot 433.30 09/24/2014 LUIS ALBERTO KRUEGER, NELSON E Ot 438.11 09/24/2014 LUIS ALBERTO KRUEGER, NELSON E Ot 438.20 09/24/2014 LUIS ALBERTO KRUEGER, NELSON E Ot 438.82 09/24/2014 LUIS ALBERTO KRUEGER, NELSON E Ot 438.89 09/24/2014 LUIS ALBERTO KRUEGER, NELSON E Ot 530.81 09/24/2014 LUIS ALBERTO KRUEGER, NELSON E Ot 787.20 09/24/2014 LUIS ALBERTO KRUEGER, NELSON E Ot V57.89 09/25/2014 LUIS ALBERTO KRUEGER, NELSON E Ot 008.45 09/25/2014 LUIS ALBERTO KRUEGER, NELSON E Ot 272.4 09/25/2014 LUIS ALBERTO KRUEGER, NELSON E Ot 305.1 09/25/2014 LUIS ALBERTO KRUEGER, NELSON E Ot 345.90 09/25/2014 LUIS ALBERTO KRUEGER, NELSON E Ot 433.10 09/25/2014 LUIS ALBERTO KRUEGER, NELSON E Ot 433.30 09/25/2014 LUIS ALBERTO KRUEGER, NELSON E Ot 438.11 09/25/2014 LUIS ALBERTO KRUEGER, NELSON E Ot 438.20 09/25/2014 LUIS ALBERTO KRUEGER, NELSON E Ot 438.82 09/25/2014 LUIS ALBERTO KRUEGER, NELSON E Ot 438.89 09/25/2014 LUIS ALBERTO KRUEGER, NELSON E Ot 530.81 09/25/2014 LUIS ALBERTO KRUEGER, NELSON E Ot 787.20 09/25/2014 LUIS ALBERTO KRUEGER, NELSON E Ot V57.89 09/26/2014 LUIS ALBERTO KRUEGER, NELSON E Ot 008.45 09/26/2014 LUIS ALBERTO KRUEGER, NELSON E Ot 272.4 09/26/2014 LUIS ALBERTO KRUEGER, NELSON E Ot 305.1 09/26/2014 LUIS ALBERTO KRUEGER, NELSON E Ot 345.90 09/26/2014 LUIS ALBERTO KRUEGER, NELSON E Ot 433.10 09/26/2014 LUIS ALBERTO KRUEGER, NELSON E Ot 433.30 09/26/2014 LUIS ALBERTO KRUEGER, NELSON E Ot 438.11 09/26/2014 LUIS ALBERTO KRUEGER, NELSON E Ot 438.20 09/26/2014 LUIS ALBERTO KRUEGER, NELSON E Ot 438.82 09/26/2014 LUIS ALBERTO KRUEGER, NELSON E Ot 438.89 09/26/2014 LUIS ALBERTO KRUEGER, NELSON E Ot 530.81 09/26/2014 LUIS ALBERTO KRUEGER, NELSON E Ot 787.20 09/26/2014 LUIS ALBERTO KRUEGER, NELSON E Ot V57.89 09/27/2014 LUIS ALBERTO KRUEGER, NELSON E Ot 008.45 09/27/2014 LUIS ALBERTO KRUEGER, NELSON E Ot 272.4 09/27/2014 LUIS ALBERTO KRUEGER, NELSON E Ot 305.1 09/27/2014 LUIS ALBERTO KRUEGER, NELSON E Ot 345.90 09/27/2014 LUIS ALBERTO KRUEGER, NELSON E Ot 433.10 09/27/2014 LUIS ALBERTO KRUEGER, NELSON E Ot 433.30 09/27/2014 LUIS ALBERTO KRUEGER, NELSON E Ot 438.11 09/27/2014 LUIS ALBERTO KRUEGER, NELSON E Ot 438.20 09/27/2014 LUIS ALBERTO KRUEGER, NELSON E Ot 438.82 09/27/2014 LUIS ALBERTO KRUEGER, NELSON E Ot 438.89 09/27/2014 LUIS ALBERTO KRUEGER, NELSON E Ot 530.81 09/27/2014 LUIS ALBERTO KRUEGER, NELSON E Ot 787.20 09/27/2014 LUIS ALBERTO KRUEGER, NELSON E Ot V57.89 09/28/2014 LUIS ALBERTO KRUEGER, NELSON E Ot 008.45 09/28/2014 LUIS ALBERTO KRUEGER, NELSON E Ot 272.4 09/28/2014 LUIS ALBERTO KRUEGER, NELSON E Ot 305.1 09/28/2014 LUIS ALBERTO KRUEGER, NELSON E Ot 345.90 09/28/2014 LUIS ALBERTO KRUEGER, NELSON E Ot 433.10 09/28/2014 LUIS ALBERTO KRUEGER, NELSON E Ot 433.30 09/28/2014 LUIS ALBERTO KRUEGER, NELSON E Ot 438.11 09/28/2014 LUIS ALBERTO KRUEGER, NELSON E Ot 438.20 09/28/2014 LUIS ALBERTO KRUEGER, NELSON E Ot 438.82 09/28/2014 LUIS ALBERTO KRUEGER, NELSON E Ot 438.89 09/28/2014 LUIS ALBERTO KRUEGER, NELSON E Ot 530.81 09/28/2014 LUIS ALBERTO KRUEGER, NELSON E Ot 787.20 09/28/2014 LUIS ALBERTO KRUEGER, NELSON E Ot V57.89 09/29/2014 LUIS ALBERTO KRUEGER, NELSON E Ot 008.45 09/29/2014 LUIS ALBERTO KRUEGER, NELSON E Ot 272.4 09/29/2014 LUIS ALBERTO KRUEGER, NELSON E Ot 305.1 09/29/2014 LUIS ALBERTO KRUEGER, NELSON E Ot 345.90 09/29/2014 LUIS ALBERTO KRUEGER, NELSON E Ot 433.10 09/29/2014 LUIS ALBERTO KRUEGER, NELSON E Ot 433.30 09/29/2014 LUIS ALBERTO KRUEGER, NELSON E Ot 438.11 09/29/2014 LUIS ALBERTO KRUEGER, NELSON E Ot 438.20 09/29/2014 LUIS ALBERTO KRUEGER, NELSON E Ot 438.82 09/29/2014 LUIS ALBERTO KRUEGER, NELSON E Ot 438.89 09/29/2014 LUIS ALBERTO KRUEGER, NELSON E Ot 530.81 09/29/2014 LUIS ALBERTO KRUEGER, NELSON E Ot 787.20 09/29/2014 LUIS ALBERTO KRUEGER, NELSON E Ot V57.89 09/30/2014 LUIS ALBERTO KRUEGER, NELSON E Ot 008.45 09/30/2014 LUIS ALBERTO KRUEGER, NELSON E Ot 272.4 09/30/2014 LUIS ALBERTO KRUEGER, NELSON E Ot 305.1 09/30/2014 LUIS ALBERTO KRUEGER, NELSON E Ot 345.90 09/30/2014 LUIS ALBERTO KRUEGER, NELSON E Ot 433.10 09/30/2014 LUIS ALBERTO KRUEGER, NELSON E Ot 433.30 09/30/2014 LUIS ALBERTO KRUEGER, NELSON E Ot 438.11 09/30/2014 LUIS ALBERTO KRUEGER, NELSON E Ot 438.20 09/30/2014 LUIS ALBERTO KRUEGER, NELSON E Ot 438.82 09/30/2014 LUIS ALBERTO KRUEGER, NELSON E Ot 438.89 09/30/2014 LUIS ALBERTO KRUEGER, NELSON E Ot 530.81 09/30/2014 LUIS ALBERTO KRUEGER, NELSON E Ot 787.20 09/30/2014 LUIS ALBERTO KRUEGER, NELSON E Ot V57.89 10/01/2014 LUIS ALBERTO KRUEGER, NELSON E Ot 008.45 10/01/2014 LUIS ALBERTO KRUEGER, NELSON E Ot 272.4 10/01/2014 LUIS ALBERTO KRUEGER, NELSON E Ot 305.1 10/01/2014 LUIS ALBERTO KRUEGER, NELSON E Ot 345.90 10/01/2014 LUIS ALBERTO KRUEGER, NELSON E Ot 433.10 10/01/2014 LUIS ALBERTO KRUEGER, NELSON E Ot 433.30 10/01/2014 LUIS ALBERTO KRUEGER, NELSON E Ot 438.11 10/01/2014 LUIS ALBERTO KRUEGER, NELSON E Ot 438.20 10/01/2014 LUIS ALBERTO KRUEGER, NELSON E Ot 438.82 10/01/2014 LUIS ALBERTO KRUEGER, NELSON E Ot 438.89 10/01/2014 LUIS ALBERTO KRUEGER, NELSON E Ot 530.81 10/01/2014 LUIS ALBERTO KRUEGER, NELSON E Ot 787.20 10/01/2014 LUIS ALBERTO KRUEGER, NELSON E Ot V57.89 10/02/2014 LUIS ALBERTO KRUEGER, NELSON E Ot 008.45 10/02/2014 LUIS ALBERTO KRUEGER, NELSON E Ot 272.4 10/02/2014 LUIS ALBERTO KRUEGER, NELSON E Ot 305.1 10/02/2014 LUIS ALBERTO KRUEGER, NELSON E Ot 345.90 10/02/2014 LUIS ALBERTO KRUEGER, NELSON E Ot 433.10 10/02/2014 LUIS ALBERTO KRUEGER, NELSON E Ot 433.30 10/02/2014 LUIS ALBERTO KRUEGER, NELSON E Ot 438.11 10/02/2014 LUIS ALBERTO KRUEGER, NELSON E Ot 438.20 10/02/2014 LUIS ALBERTO KRUEGER, NELSON E Ot 438.82 10/02/2014 LUIS ALBERTO KRUEGER, NELSON E Ot 438.89 10/02/2014 LUIS ALBERTO KRUEGER, NELSON E Ot 530.81 10/02/2014 LUIS ALBERTO KRUEGER, NELSON E Ot 787.20 10/02/2014 LUIS ALBERTO KRUEGER, NELSON E Ot V57.89 10/03/2014 LUIS ALBERTO KRUEGER, NELSON E Ot 008.45 10/03/2014 LUIS ALBERTO KRUEGER, NELSON E Ot 272.4 10/03/2014 LUIS ALBERTO KRUEGER, NELSON E Ot 305.1 10/03/2014 LUIS ALBERTO KRUEGER, NELSON E Ot 345.90 10/03/2014 LUIS ALBERTO KRUEGER, NELSON E Ot 433.10 10/03/2014 LUIS ALBERTO KRUEGER, NELSON E Ot 433.30 10/03/2014 LUIS ALBERTO KRUEGER, NELSON E Ot 438.11 10/03/2014 LUIS ALBERTO KRUEGER, NELSON E Ot 438.20 10/03/2014 LUIS ALBERTO KRUEGER, NELSON E Ot 438.82 10/03/2014 LUIS ALBERTO KRUEGER, NELSON E Ot 438.89 10/03/2014 LUIS ALBERTO KRUEGER, NELSON E Ot 530.81 10/03/2014 LUIS ALBERTO KRUEGER, NELSON E Ot 787.20 10/03/2014 LUIS ALBERTO KRUEGER, NELSON E Ot V57.89 10/04/2014 LUIS ALBERTO KRUEGER, NELSON E Ot 008.45 10/04/2014 LUIS ALBERTO KRUEGER, NELSON E Ot 272.4 10/04/2014 LUIS ALBERTO KRUEGER, NELSON E Ot 305.1 10/04/2014 LUIS ALBERTO KRUEGER, NELSON E Ot 345.90 10/04/2014 LUIS ALBERTO KRUEGER, NELSON E Ot 433.10 10/04/2014 LUIS ALBERTO KRUEGER, NELSON E Ot 433.30 10/04/2014 LUIS ALBERTO KRUEGER, NELSON E Ot 438.11 10/04/2014 LUIS ALBERTO KRUEGER, NELSON E Ot 438.20 10/04/2014 LUIS ALBERTO KRUEGER, NELSON E Ot 438.82 10/04/2014 LUIS ALBERTO KRUEGER, NELSON E Ot 438.89 10/04/2014 LUIS ALBERTO KRUEGER, NELSON E Ot 530.81 10/04/2014 LUIS ALBERTO KRUEGER, NELSON E Ot 787.20 10/04/2014 LUIS ALBERTO KRUEGER, NELSON E Ot V57.89 10/05/2014 LUIS ALBERTO KRUEGER, NELSON E Ot 008.45 10/05/2014 LUIS ALBERTO KRUEGER, NELSON E Ot 272.4 10/05/2014 LUIS ALBERTO KRUEGER, NELSON E Ot 305.1 10/05/2014 LUIS ALBERTO KRUEGER, NELSON E Ot 345.90 10/05/2014 LUIS ALBERTO KRUEGER, NELSON E Ot 433.10 10/05/2014 LUIS ALBERTO KRUEGER, NELSON E Ot 433.30 10/05/2014 LUIS ALBERTO KRUEGER, NELSON E Ot 438.11 10/05/2014 LUIS ALBERTO KRUEGER, NELSON E Ot 438.20 10/05/2014 LUIS ALBERTO KRUEGER, NELSON E Ot 438.82 10/05/2014 LUIS ALBERTO KRUEGER, NELSON E Ot 438.89 10/05/2014 LUIS ALBERTO KRUEGER, NELSON E Ot 530.81 10/05/2014 LUIS ALBERTO KRUEGER, NELSON E Ot 787.20 10/05/2014 LUIS ALBERTO KRUEGER, NELSON E Ot V57.89 10/06/2014 LUIS ALBERTO KRUEGER, NELSON E Ot 008.45 10/06/2014 LUIS ALBERTO KRUEGER, NELSON E Ot 272.4 10/06/2014 LUIS ALBERTO KRUEGER, NELSON E Ot 305.1 10/06/2014 LUIS ALBERTO KRUEGER, NELSON E Ot 345.90 10/06/2014 LUIS ALBERTO KRUEGER, NELSON E Ot 433.10 10/06/2014 LUIS ALBERTO KRUEGER, NELSON E Ot 433.30 10/06/2014 LUIS ALBERTO KREUGER, NELSON E Ot 438.11 10/06/2014 LUIS ALBERTO KRUEGER, NELSON E Ot 438.20 10/06/2014 LUIS ALBERTO KRUEGER, NELSON E Ot 438.82 10/06/2014 LUIS ALBERTO KRUEGER, NELSON E Ot 438.89 10/06/2014 LUIS ALBERTO KRUEGER, NELSON E Ot 530.81 10/06/2014 LUIS ALBERTO KRUEGER, NELSON E Ot 787.20 10/06/2014 LUIS ALBERTO KRUEGER, NELSON E Ot V57.89 10/07/2014 LUIS ALBERTO KRUEGER, NELSON E Ot 008.45 10/07/2014 LUIS ALBERTO KRUEGER, NELSON E Ot 272.4 10/07/2014 LUIS ALBERTO KRUEGER, NELSON E Ot 305.1 10/07/2014 LUIS ALBERTO KRUEGER, NELSON E Ot 345.90 10/07/2014 LUIS ALBERTO KRUEGER, NELSON E Ot 433.10 10/07/2014 LUIS ALBERTO KRUEGER, NELSON E Ot 433.30 10/07/2014 LUIS ALBERTO KRUEGER, NELSON E Ot 438.11 10/07/2014 LUIS ALBERTO KRUEGER, NELSON E Ot 438.20 10/07/2014 LUIS ALBERTO KRUEGER, NELSON E Ot 438.82 10/07/2014 LUIS ALBERTO KRUEGER, NELSON E Ot 438.89 10/07/2014 LUIS ALBERTO KRUEGER, NELSON E Ot 530.81 10/07/2014 LUIS ALBERTO KRUEGER, NELSON E Ot 787.20 10/07/2014 LUIS ALBERTO KRUEGER, NELSON E Ot V57.89 10/08/2014 LUIS ALBERTO KRUEGER, NELSON E Ot 008.45 10/08/2014 LUIS ALBERTO KRUEGER, NELSON E Ot 272.4 10/08/2014 LUIS ALBERTO KRUEGER, NELSON E Ot 305.1 10/08/2014 LUIS ALBERTO KRUEGER, NELSON E Ot 345.90 10/08/2014 LUIS ALBERTO KRUEGER, NELSON E Ot 433.10 10/08/2014 LUIS ALBERTO KRUEGER, NELSON E Ot 433.30 10/08/2014 LUIS ALBERTO KRUEGER, NELSON E Ot 438.11 10/08/2014 LUIS ALBERTO KRUEGER, NELSON E Ot 438.20 10/08/2014 LUIS ALBERTO KRUEGER, NELSON E Ot 438.82 10/08/2014 LUIS ALBERTO KRUEGER, NELSON E Ot 438.89 10/08/2014 LUIS ALBERTO KRUEGER, NELSON E Ot 530.81 10/08/2014 LUIS ALBERTO KRUEGER, NELSON E Ot 787.20 10/08/2014 LUIS ALBERTO KRUEGER, NELSON E Ot V57.89 10/09/2014 LUIS ALBERTO KRUEGER, NELSON E Ot 008.45 10/09/2014 LUIS ALBERTO KRUEGER, NELSON E Ot 272.4 10/09/2014 LUIS ALBERTO KRUEGER, NELSON E Ot 305.1 10/09/2014 LUIS ALBERTO KRUEGER, NELSON E Ot 345.90 10/09/2014 LUIS ALBERTO KRUEGER, NELSON E Ot 433.10 10/09/2014 LUIS ALBERTO KRUEGER, NELSON E Ot 433.30 10/09/2014 LUIS ALBERTO KRUEGER, NELSON E Ot 438.11 10/09/2014 LUIS ALBERTO KRUEGER, NELSON E Ot 438.20 10/09/2014 LUIS ALBERTO KRUEGER, NELSON E Ot 438.82 10/09/2014 LUIS ALBERTO KRUEGER, NELSON E Ot 438.89 10/09/2014 LUIS ALBERTO KRUEGER, NELSON E Ot 530.81 10/09/2014 LUIS ALBERTO KRUEGER, NELSON E Ot 787.20 10/09/2014 LUIS ALBERTO KRUEGER, NELSON E Ot V57.89 10/09/2014 LUIS ALBERTO KRUEGER, NELSON E Ot 008.45 10/09/2014 LUIS LABERTO KRUEGER, NELSON E Ot 272.4 10/09/2014 LUIS ALBERTO KRUEGER, NELSON E Ot 305.1 10/09/2014 LUIS ALBERTO KRUEGER, NELSON E Ot 345.90 10/09/2014 LUIS ALBERTO KRUEGER, NELSON E Ot 433.10 10/09/2014 LUIS ALBERTO KRUEGER, NELSON E Ot 433.30 10/09/2014 SAHU MD, NELSON E Ot 438.11 10/09/2014 LUIS ALBERTO KRUEGER NELSON E Ot 438.20 10/09/2014 LUIS ALBERTO KRUEGER NELSON E Ot 438.82 10/09/2014 LUIS ALBERTO KRUEGER NELSON E Ot 438.89 10/09/2014 LUIS ALBERTO KRUEGER NELSON E Ot 530.81 10/09/2014 LUIS ALBERTO KRUEGER NELSON E Ot 787.20 10/09/2014 LUIS ALBERTO KRUEGER NELSON E Ot V57.89 10/14/2014 LUIS ALBERTO KRUEGER NELSON E Ot 008.45 INTESTINAL INFECTION DUE TO CLOSTRIDIUM 10/14/2014 LUIS ALBERTO KRUEGER NELSON E Ot 041.04 STREPTOCOCCUS INFECTION NOS, GROUP D (EN 10/14/2014 LUIS ALBERTO KRUEGER NELSON E Ot 041.12 METHICILLIN RESISTANT STAPHYLOCOCCUS AUR 10/14/2014 LUIS ALBERTO KRUEGER NELSON E Ot 272.4 HYPERLIPIDEMIA NEC/NOS 10/14/2014 LUIS ALBERTO KRUEGER NELSON E Ot 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 10/14/2014 LUIS ALBERTO KRUEGER NELSON E Ot 292.12 DRUG-INDUCED PSYCHOTIC DISORDER WITH PATITO 10/14/2014 LUIS ALBERTO KRUEGER NELSON E Ot 305.1 TOBACCO USE DISORDER 10/14/2014 LUIS ALBERTO KRUEGER, NELSON E Ot 311 DEPRESSIVE DISORDER NEC 10/14/2014 LUIS ALBERTO KRUEGER NELSON E Ot 345.90 EPILEPSY UNSPEC W/O MENTION INTRACTABLE 10/14/2014 LUIS ALBERTO KRUEGER NELSON E Ot 433.10 CAROTID ARTERY OCCLUSION W O CEREBRAL IN 10/14/2014 LUIS ALBERTO KRUEGER NELSON E Ot 433.30 MULT BILTRAL ARTERY OCCLUSION WO CEREBRA 10/14/2014 LUIS ALBERTO KRUEGER NELSON E Ot 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, SPEECH LA 10/14/2014 LUIS ALBERTO KRUEGER NELSON E Ot 438.20 LATE EFF-CEREBR DIS,HEMIPLEGIA AFFECTING 10/14/2014 LUIS ALBERTO KRUEGER NELSON E Ot 438.82 OTH LATE EFF-CEREB DIS, DYSPHAGIA 10/14/2014 LUIS ALBERTO KRUEGER NELSON E Ot 438.89 OTH LATE EFFECT-CEREBROVASCULAR DISEASE 10/14/2014 LUIS ALBERTO KRUEGER NELSON E Ot 530.81 ESOPHAGEAL REFLUX 10/14/2014 LUIS ALBERTO KRUEGER NELSON E Ot 599.0 URIN TRACT INFECTION NOS 10/14/2014 LUIS ALBERTO KRUEGER NELSON E Ot 715.36 LOC OSTEOARTH NOS-L/LEG 10/14/2014 LUIS ALBERTO KRUEGER NELSON E Ot 721.3 LUMBOSACRAL SPONDYLOSIS 10/14/2014 NELSON SAHU MD Ot 780.52 INSOMNIA, UNSPECIFIED 10/14/2014 NELSON SAHU MD Ot 787.20 DYSPHAGIA, UNSPECIFIED 10/14/2014 NELSON SAHU MD Ot 790.6 ABN BLOOD CHEMISTRY [facility] 10/14/2014 NELSON SAHU MD Ot 996.64 INFEC INFLAM REACT DUE TO INDWELLING U 10/14/2014 NELSON SAHU MD Ot V09.81 INFECT RES TO DRUGS NEC, W RES TO MULT D 10/14/2014 NELSON SAHU MD Ot V57.89 REHABILITATION PROC NEC 03/25/2015 CARYN HICKMAN Ot 438.11 03/25/2015 CARYN HICKMAN Ot V57.21 05/12/2015 CARYN HICKMAN Ot 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, SPEECH LA 05/12/2015 CARYN HICKMAN Ot V57.21 ENCOUNTER FOR OCCUPATIONAL THERAPY 05/13/2015 YONAS SANDERS MD Ot I69.320 APHASIA FOLLOWING CEREBRAL INFARCTION 05/13/2015 YONAS SANDERS MD Ot R33.9 RETENTION OF URINE, UNSPECIFIED 05/13/2015 YONAS SANDERS MD Ot Z87.891 PERSONAL HISTORY OF NICOTINE DEPENDENCE 04/03/2016 NATHANAEL ALTAMIRANO MD Ot N20.1 CALCULUS OF URETER 04/03/2016 NATHANAEL ALTAMIRANO MD Ot Z01.818 ENCOUNTER FOR OTHER PREPROCEDURAL EXAMIN 04/03/2016 NATHANAEL ALTAMIRANO MD Ot Z11.2 ENCOUNTER FOR SCREENING FOR OTHER BACTER 04/04/2016 NATHANAEL ALTAMIRANO MD Ot N20.1 CALCULUS OF URETER 04/04/2016 NATHANAEL ALTAMIRANO MD Ot Z01.818 ENCOUNTER FOR OTHER PREPROCEDURAL EXAMIN 04/04/2016 NATHANAEL ALTAMIRANO MD Ot Z11.2 ENCOUNTER FOR SCREENING FOR OTHER BACTER 04/04/2016 NATHANAEL ALTAMIRANO MD Ot N20.1 CALCULUS OF URETER 04/06/2016 NATHANAEL ALTAMIRANO MD Ot N20.1 CALCULUS OF URETER 04/06/2016 NATHANAEL ALTAMIRANO MD Ot N20.1 CALCULUS OF URETER 04/07/2016 ADARSH KRUEGER, NATHANAEL Guillen Ot N20.1 CALCULUS OF URETER 04/10/2016 ADARSH KRUEGER, NATHANAEL Guillen Ot N20.1 CALCULUS OF URETER 10/29/2017 ADARSH KRUEGER, NATHANAEL Guillen Ot N20.1 CALCULUS OF URETER 10/29/2017 NATHANAEL ALTAMIRANO MD Ot N20.1 CALCULUS OF URETER 10/29/2017 PHILIPP BEJARANO APRN Ot E78.00 PURE HYPERCHOLESTEROLEMIA, UNSPECIFIED 10/29/2017 PHILIPP BEJARANO APRN Ot G40.909 EPILEPSY, UNSP, NOT INTRACTABLE, WITHOUT 10/29/2017 PHILIPP BEJARANO APRN Ot K21.9 GASTRO-ESOPHAGEAL REFLUX DISEASE WITHOUT 10/29/2017 PHILIPP BEJARANO APRN Ot K86.89 OTHER SPECIFIED DISEASES OF PANCREAS 10/29/2017 PHILIPP BEJARANO APRN Ot N13.6 PYONEPHROSIS 10/29/2017 PHILIPP BEJRAANO APRN Ot R33.9 RETENTION OF URINE, UNSPECIFIED 10/29/2017 PHILIPP BEJARANO APRN Ot Z86.73 PRSNL HX OF TIA (TIA), AND CEREB INFRC W 10/29/2017 PHILIPP BEJARANO APRN Ot Z87.442 PERSONAL HISTORY OF URINARY CALCULI 10/29/2017 PHILIPP BEJARANO APRN Ot Z87.891 PERSONAL HISTORY OF NICOTINE DEPENDENCE 10/29/2017 PHILIPP BEJARANO APRN Ot Z88.1 ALLERGY STATUS TO OTHER ANTIBIOTIC AGENT 10/29/2017 PHILIPP BEJARANO APRN Ot Z88.6 ALLERGY STATUS TO ANALGESIC AGENT STATUS 10/29/2017 PHILIPP BEJARANO APRN Ot Z90.49 ACQUIRED ABSENCE OF OTHER SPECIFIED PART 10/30/2017 NATHANAEL ALTAMIRANO MD Ot N20.0 CALCULUS OF KIDNEY 10/30/2017 NATHANAEL ALTAMIRANO MD Ot N20.1 CALCULUS OF URETER 10/30/2017 NATHANAEL ALTAMIRANO MD Ot N40.0 BENIGN PROSTATIC HYPERPLASIA WITHOUT LOW 10/30/2017 NATHANAEL ALTAMIRANO MD Ot Z01.818 ENCOUNTER FOR OTHER PREPROCEDURAL EXAMIN 10/30/2017 NATHANAEL ALTAMIRANO MD Ot Z11.2 ENCOUNTER FOR SCREENING FOR OTHER BACTER 10/31/2017 PHILIPP BEJARANO APRN Ot E78.00 PURE HYPERCHOLESTEROLEMIA, UNSPECIFIED 10/31/2017 PHILIPP BEJARANO APRN Ot G40.909 EPILEPSY, UNSP, NOT INTRACTABLE, WITHOUT 10/31/2017 PHILIPP BEJARANO APRN Ot K21.9 GASTRO-ESOPHAGEAL REFLUX DISEASE WITHOUT 10/31/2017 PHILIPP BEJARANO APRN Ot K86.89 OTHER SPECIFIED DISEASES OF PANCREAS 10/31/2017 PHILIPP BEJARANO APRN Ot N13.6 PYONEPHROSIS 10/31/2017 PHILIPP BEJARANO APRN Ot R33.9 RETENTION OF URINE, UNSPECIFIED 10/31/2017 PHILIPP BEJARANO APRN Ot Z86.73 PRSNL HX OF TIA (TIA), AND CEREB INFRC W 10/31/2017 PHILIPP BEJARANO APRN Ot Z87.442 PERSONAL HISTORY OF URINARY CALCULI 10/31/2017 PHILIPP BEJARANO APRN Ot Z87.891 PERSONAL HISTORY OF NICOTINE DEPENDENCE 10/31/2017 PHILIPP BEJARANO APRN Ot Z88.1 ALLERGY STATUS TO OTHER ANTIBIOTIC AGENT 10/31/2017 PHILIPP BEJARANO APRN Ot Z88.6 ALLERGY STATUS TO ANALGESIC AGENT STATUS 10/31/2017 PHILIPP BEJARANO APRN Ot Z90.49 ACQUIRED ABSENCE OF OTHER SPECIFIED PART 11/07/2017 NATHANAEL ALTAMIRANO MD Ot E78.5 HYPERLIPIDEMIA, UNSPECIFIED 11/07/2017 NATHANAEL ALTAMIRANO MD Ot G40.909 EPILEPSY, UNSP, NOT INTRACTABLE, WITHOUT 11/07/2017 NATHANAEL ALTAMIRANO MD Ot I25.10 ATHSCL HEART DISEASE OF [place] CORONARY 11/07/2017 NATHANAEL ALTAMIRANO MD Ot I73.9 PERIPHERAL VASCULAR DISEASE, UNSPECIFIED 11/07/2017 NATHANAEL ALTAMIRANO MD Ot N20.1 CALCULUS OF URETER 11/07/2017 NATHANAEL ALTAMIRANO MD Ot N40.0 BENIGN PROSTATIC HYPERPLASIA WITHOUT LOW 11/07/2017 NATHANAEL ALTAMIRANO MD Ot Z79.899 OTHER CONTOUR SANDER (CURRENT) DRUG THERAPY 11/07/2017 NATHANAEL ALTAMIRANO MD, Ot Z86.73 PRSNL HX OF TIA (TIA), AND CEREB INFRC W 11/07/2017 NATHANAEL ALTAMIRANO MD Ot Z88.8 ALLERGY STATUS TO OTH DRUG/MEDS/BIOL SUB 11/07/2017 NATHANAEL ALTAMIRANO MD Ot Z95.5 PRESENCE OF CORONARY ANGIOPLASTY IMPLANT 11/07/2017 NATHANAEL ALTAMIRANO MD Ot Z99.3 DEPENDENCE ON WHEELCHAIR 11/08/2017 NATHANAEL ALTAMIRANO MD Ot E78.5 HYPERLIPIDEMIA, UNSPECIFIED 11/08/2017 NATHANAEL ALTAMIRANO MD Ot G40.909 EPILEPSY, UNSP, NOT INTRACTABLE, WITHOUT 11/08/2017 NATHANAEL ALTAMIRANO MD Ot I25.10 ATHSCL HEART DISEASE OF [place] CORONARY 11/08/2017 NATHANAEL ALTAMIRANO MD Ot I73.9 PERIPHERAL VASCULAR DISEASE, UNSPECIFIED 11/08/2017 NATHANAEL ALTAMIRANO MD Ot N20.1 CALCULUS OF URETER 11/08/2017 ANTHANAEL ALTAMIRANO MD Ot N40.0 BENIGN PROSTATIC HYPERPLASIA WITHOUT LOW 11/08/2017 NATHANAEL ALTAMIRANO MD Ot Z79.899 OTHER ASSISTED (CURRENT) DRUG THERAPY 11/08/2017 NATHANAEL ALTAMIRANO MD Ot Z86.73 PRSNL HX OF TIA (TIA), AND CEREB INFRC W 11/08/2017 NATHANAEL ALTAMIRANO MD Ot Z88.8 ALLERGY STATUS TO OTH DRUG/MEDS/BIOL SUB 11/08/2017 NATHANAEL ALTAMIRANO MD Ot Z95.5 PRESENCE OF CORONARY ANGIOPLASTY IMPLANT 11/08/2017 NATHANAEL ALTAMIRANO MD Ot Z99.3 DEPENDENCE ON WHEELCHAIR 11/09/2017 NATHANAEL ALTAMIRANO MD Ot E78.5 HYPERLIPIDEMIA, UNSPECIFIED 11/09/2017 NATHANAEL ALTAMIRANO MD Ot G40.909 EPILEPSY, UNSP, NOT INTRACTABLE, WITHOUT 11/09/2017 NATHANAEL ALTAMIRANO MD Ot I25.10 ATHSCL HEART DISEASE OF [place] CORONARY 11/09/2017 NATHANAEL ALTAMIRANO MD Ot I73.9 PERIPHERAL VASCULAR DISEASE, UNSPECIFIED 11/09/2017 NATHANAEL ALTAMIRANO MD Ot N20.1 CALCULUS OF URETER 11/09/2017 NATHANAEL ALTAMIRANO MD Ot N40.0 BENIGN PROSTATIC HYPERPLASIA WITHOUT LOW 11/09/2017 NATHANAEL ALTAMIRANO MD, Ot Z79.899 OTHER CONTOUR SANDER (CURRENT) DRUG THERAPY 11/09/2017 NATHANAEL ALTAMIRANO MD, Ot Z86.73 PRSNL HX OF TIA (TIA), AND CEREB INFRC W 11/09/2017 NATHANAEL ALTAMIRANO MD, Ot Z88.8 ALLERGY STATUS TO OTH DRUG/MEDS/BIOL SUB 11/09/2017 NATHANAEL ALTAMIRANO MD Ot Z95.5 PRESENCE OF CORONARY ANGIOPLASTY IMPLANT 11/09/2017 NATHANAEL ALTAMIRANO MD Ot Z99.3 DEPENDENCE ON WHEELCHAIR 11/21/2017 NATHANAEL ALTAMIRANO MD Ot E78.5 HYPERLIPIDEMIA, UNSPECIFIED 11/21/2017 NATHANAEL ALTAMIRANO MD Ot G40.909 EPILEPSY, UNSP, NOT INTRACTABLE, WITHOUT 11/21/2017 NATHANAEL ALTAMIRANO MD Ot I25.10 ATHSCL HEART DISEASE OF [place] CORONARY 11/21/2017 NATHANAEL ALTAMIRANO MD Ot I73.9 PERIPHERAL VASCULAR DISEASE, UNSPECIFIED 11/21/2017 NATHANAEL ALTAMIRANO MD Ot N20.1 CALCULUS OF URETER 11/21/2017 NATHANAEL ALTAMIRANO MD Ot N40.0 BENIGN PROSTATIC HYPERPLASIA WITHOUT LOW 11/21/2017 NATHANAEL ALTAMIRANO MD Ot Z79.899 OTHER ASSISTED (CURRENT) DRUG THERAPY 11/21/2017 NATHANAEL ALTAMIRANO MD, Ot Z86.73 PRSNL HX OF TIA (TIA), AND CEREB INFRC W 11/21/2017 NATHANAEL ALTAMIRANO MD, Ot Z88.8 ALLERGY STATUS TO OTH DRUG/MEDS/BIOL SUB 11/21/2017 NATHANAEL ALTAMIRANO MD Ot Z95.5 PRESENCE OF CORONARY ANGIOPLASTY IMPLANT 11/21/2017 NATHANAEL ALTAMIRANO MD Ot Z99.3 DEPENDENCE ON WHEELCHAIR 11/23/2017 NATHANAEL ALTAMIRANO MD Ot N20.2 CALCULUS OF KIDNEY WITH CALCULUS OF URET 12/12/2017 NATHANAEL ALTAMIRANO MD Ot N20.2 CALCULUS OF KIDNEY WITH CALCULUS OF URET 04/18/2018 NATHANAEL ALTAMIRANO MD Ot N20.2 CALCULUS OF KIDNEY WITH CALCULUS OF URET 04/18/2018 PHILIPP BEJARANO APRN Ot E78.00 PURE HYPERCHOLESTEROLEMIA, UNSPECIFIED 04/18/2018 PHILIPP BEJARANO APRN Ot G40.909 EPILEPSY, UNSP, NOT INTRACTABLE, WITHOUT 04/18/2018 PHILIPP BEJARANO APRN Ot I73.9 PERIPHERAL VASCULAR DISEASE, UNSPECIFIED 04/18/2018 PHILIPP BEJARANO APRN Ot K21.9 GASTRO-ESOPHAGEAL REFLUX DISEASE WITHOUT 04/18/2018 PHILIPP BEJARANO APRN Ot N20.2 CALCULUS OF KIDNEY WITH CALCULUS OF URET 04/18/2018 PHILIPP BEJARANO APRN Ot R30.0 DYSURIA 04/18/2018 PIHLIPP BEJARANO APRN Ot Z80.1 FAMILY HISTORY OF MALIG NEOPLASM OF [place]AC 04/18/2018 PHILIPP BEJARANO APRN Ot Z80.49 FAMILY HISTORY OF MALIGNANT NEOPLASM OF 04/18/2018 PHILIPP BEJARANO APRN Ot Z82.49 FAMILY HX OF ISCHEM HEART DIS AND OTH DI 04/18/2018 PHILIPP BEJARANO APRN Ot Z86.73 PRSNL HX OF TIA (TIA), AND CEREB INFRC W 04/18/2018 PHILIPP BEJARANO APRN Ot Z87.19 PERSONAL HISTORY OF OTHER DISEASES OF TH 04/18/2018 PHILIPP BEJARANO APRN Ot Z87.442 PERSONAL HISTORY OF URINARY CALCULI 04/18/2018 PHILIPP BEJARANO APRN Ot Z87.891 PERSONAL HISTORY OF NICOTINE DEPENDENCE 04/18/2018 PHILIPP BEJARANO APRN Ot Z88.8 ALLERGY STATUS TO OT DRUG/MEDS/BIOL SUB 04/18/2018 PHILIPP BEJARANO APRN Ot Z90.89 ACQUIRED ABSENCE OF OTHER ORGANS 04/18/2018 PHILIPP BEJARANO APRN Ot Z98.61 CORONARY ANGIOPLASTY STATUS 05/07/2018 ADARSH KRUEGER, NATHANAEL Guillen Ot N20.1 CALCULUS OF URETER 05/12/2018 NATHANAEL ALTAMIRANO MD Ot N20.1 CALCULUS OF URETER 05/28/2018 NATHANAEL ALTAMIRANO MD Ot N20.1 CALCULUS OF URETER 05/31/2018 NATHANAEL ALTAMIRANO MD Ot E78.5 HYPERLIPIDEMIA, UNSPECIFIED 05/31/2018 ADARSH KRUEGER, NATHANAEL Guillen Ot G40.909 EPILEPSY, UNSP, NOT INTRACTABLE, WITHOUT 05/31/2018 ADARSHNATHANAEL BARRON MD, Ot I25.10 ATHSCL HEART DISEASE OF [place] CORONARY 05/31/2018 NATHANAEL ALTAMIRANO MD, Ot I73.9 PERIPHERAL VASCULAR DISEASE, UNSPECIFIED 05/31/2018 NATHANAEL ALTAMIRANO MD, Ot N20.1 CALCULUS OF URETER 05/31/2018 NATHANAEL ALTAMIRANO MD, Ot N40.0 BENIGN PROSTATIC HYPERPLASIA WITHOUT LOW 05/31/2018 NATHANAEL ALTAMIRANO MD, Ot Z79.899 OTHER CONTOUR SANDER (CURRENT) DRUG THERAPY 05/31/2018 NATHANAEL ALTAMIRANO MD, Ot Z86.73 PRSNL HX OF TIA (TIA), AND CEREB INFRC W 05/31/2018 NATHANAEL ALTAMIRANO MD, Ot Z88.8 ALLERGY STATUS TO OT DRUG/MEDS/BIOL SUB 05/31/2018 NATHANAEL ALTAMIRANO MD, Ot Z95.5 PRESENCE OF CORONARY ANGIOPLASTY IMPLANT 05/31/2018 NATHANAEL ALTAMIRANO MD, Ot Z99.3 DEPENDENCE ON WHEELCHAIR 10/15/2018 NATHANAEL ALTAMIRANO MD, Ot N28.89 OTHER SPECIFIED DISORDERS OF KIDNEY AND 11/06/2018 NATHANAEL ALTAMIRANO MD, Ot N28.89 OTHER SPECIFIED DISORDERS OF KIDNEY AND Procedures There is no data. Results Test Result Range Methicillin resistant Staphylococcus aureus (MRSA) screening culture - 04/03/16 10:25 Methicillin resistant Staphylococcus aureus (MRSA) screening culture NEG NRG Complete blood count (CBC) with automated white blood cell (WBC) differential - 10/29/17 14:30 Blood leukocytes automated count (number/volume) 4.8 10*3/uL 4.3-11.0 Blood erythrocytes automated count (number/volume) 4.77 10*6/uL 4.35-5.85 Venous blood hemoglobin measurement (mass/volume) 14.7 g/dL 13.3-17.7 Blood hematocrit (volume fraction) 42 % 40-54 Automated erythrocyte mean corpuscular volume 88 [foz_us] 80-99 Automated erythrocyte mean corpuscular hemoglobin (mass per erythrocyte) 31 pg 25-34 Automated erythrocyte mean corpuscular hemoglobin concentration measurement (mass/volume) 35 g/dL 32-36 Automated erythrocyte distribution width ratio 14.0 % 10.0- 14.5 Automated blood platelet count (count/volume) 194 10*3/uL 130-400 Automated blood platelet mean volume measurement 9.6 [foz_us] 7.4-10.4 Automated blood neutrophils/100 leukocytes 58 % 42-75 Automated blood lymphocytes/100 leukocytes 26 % 12-44 Blood monocytes/100 leukocytes 13 % 0-12 Automated blood eosinophils/100 leukocytes 2 % 0-10 Automated blood basophils/100 leukocytes 0 % 0-10 Blood neutrophils automated count (number/volume) 2.8 10*3 1.8-7.8 Blood lymphocytes automated count (number/volume) 1.3 10*3 1.0-4.0 Blood monocytes automated count (number/volume) 0.6 10*3 0.0- 1.0 Automated eosinophil count 0.1 10*3/uL 0.0-0.3 Automated blood basophil count (count/volume) 0.0 10*3/uL 0.0-0.1 Comprehensive metabolic panel - 10/29/17 14:30 Serum or plasma sodium measurement (moles/volume) 140 mmol/L 135-145 Serum or plasma potassium measurement (moles/volume) 4.3 mmol/L 3.6-5.0 Serum or plasma chloride measurement (moles/volume) 109 mmol/L 98-107 Carbon dioxide 26 mmol/L 21-32 Serum or plasma anion gap determination (moles/volume) 5 mmol/L 5-14 Serum or plasma urea nitrogen measurement (mass/volume) 18 mg/dL 7-18 Serum or plasma creatinine measurement (mass/volume) 0.96 mg/dL 0.60-1.30 Serum or plasma urea nitrogen/creatinine mass ratio 19 NRG Serum or plasma creatinine measurement with calculation of estimated glomerular filtration rate > NRG Serum or plasma glucose measurement (mass/volume) 97 mg/dL 70-105 Serum or plasma calcium measurement (mass/volume) 8.9 mg/dL 8.5-10.1 Serum or plasma total bilirubin measurement (mass/volume) 0.6 mg/dL 0.1-1.0 Serum or plasma alkaline phosphatase measurement (enzymatic activity/volume) 69 U/L 40-136 Serum or plasma aspartate aminotransferase measurement (enzymatic activity/volume) 14 U/L 5-34 Serum or plasma alanine aminotransferase measurement (enzymatic activity/volume) 17 U/L 0-55 Serum or plasma protein measurement (mass/volume) 7.2 g/dL 6.4-8.2 Serum or plasma albumin measurement (mass/volume) 4.0 g/dL 3.2-4.5 Complete urinalysis with reflex to culture - 10/29/17 15:20 Urine color determination TUNG NRG Urine clarity determination CLEAR NRG Urine pH measurement by test strip 5 5-9 Specific gravity of urine by test strip 1.025 1.016-1.022 Urine protein assay by test strip, semi-quantitative 1+ NEGATIVE Urine glucose detection by automated test strip NEGATIVE NEGATIVE Erythrocytes detection in urine sediment by light microscopy 4+ NEGATIVE Urine ketones detection by automated test strip NEGATIVE NEGATIVE Urine nitrite detection by test strip NEGATIVE NEGATIVE Urine total bilirubin detection by test strip NEGATIVE NEGATIVE Urine urobilinogen measurement by automated test strip (mass/volume) NORMAL NORMAL Urine leukocyte esterase detection by dipstick 2+ NEGATIVE Automated urine sediment erythrocyte count by microscopy (number/high power field) [HPF] NRG Automated urine sediment leukocyte count by microscopy (number/high power field) [HPF] NRG Bacteria detection in urine sediment by light microscopy TRACE NRG Crystals detection in urine sediment by light microscopy NONE NRG Casts detection in urine sediment by light microscopy NONE NRG Mucus detection in urine sediment by light microscopy SMALL NRG Complete urinalysis with reflex to culture YES NRG Bacterial urine culture - 10/29/17 15:20 Bacterial urine culture NG NRG Methicillin resistant Staphylococcus aureus (MRSA) screening culture - 10/30/17 15:28 Methicillin resistant Staphylococcus aureus (MRSA) screening culture NEG NRG Complete blood count (CBC) with automated white blood cell (WBC) differential - 04/18/18 10:36 Blood leukocytes automated count (number/volume) 3.9 10*3/uL 4.3-11.0 Blood erythrocytes automated count (number/volume) 4.65 10*6/uL 4.35-5.85 Venous blood hemoglobin measurement (mass/volume) 14.5 g/dL 13.3-17.7 Blood hematocrit (volume fraction) 42 % 40-54 Automated erythrocyte mean corpuscular volume 90 [foz_us] 80-99 Automated erythrocyte mean corpuscular hemoglobin (mass per erythrocyte) 31 pg 25-34 Automated erythrocyte mean corpuscular hemoglobin concentration measurement (mass/volume) 35 g/dL 32-36 Automated erythrocyte distribution width ratio 14.9 % 10.0- 14.5 Automated blood platelet count (count/volume) 202 10*3/uL 130-400 Automated blood platelet mean volume measurement 10.3 [foz_us] 7.4-10.4 Automated blood neutrophils/100 leukocytes 57 % 42-75 Automated blood lymphocytes/100 leukocytes 24 % 12-44 Blood monocytes/100 leukocytes 16 % 0-12 Automated blood eosinophils/100 leukocytes 3 % 0-10 Automated blood basophils/100 leukocytes 0 % 0-10 Blood neutrophils automated count (number/volume) 2.2 10*3 1.8-7.8 Blood lymphocytes automated count (number/volume) 0.9 10*3 1.0-4.0 Blood monocytes automated count (number/volume) 0.6 10*3 0.0- 1.0 Automated eosinophil count 0.1 10*3/uL 0.0-0.3 Automated blood basophil count (count/volume) 0.0 10*3/uL 0.0-0.1 Whole blood basic metabolic panel - 04/18/18 10:36 Serum or plasma sodium measurement (moles/volume) 137 mmol/L 135-145 Serum or plasma potassium measurement (moles/volume) 4.8 mmol/L 3.6-5.0 Serum or plasma chloride measurement (moles/volume) 110 mmol/L 98-107 Carbon dioxide 20 mmol/L 21-32 Serum or plasma anion gap determination (moles/volume) 7 mmol/L 5-14 Serum or plasma urea nitrogen measurement (mass/volume) 17 mg/dL 7-18 Serum or plasma creatinine measurement (mass/volume) 0.95 mg/dL 0.60-1.30 Serum or plasma urea nitrogen/creatinine mass ratio 18 NRG Serum or plasma creatinine measurement with calculation of estimated glomerular filtration rate > NRG Serum or plasma glucose measurement (mass/volume) 98 mg/dL 70-105 Serum or plasma calcium measurement (mass/volume) 9.1 mg/dL 8.5-10.1 Complete urinalysis with reflex to culture - 04/18/18 13:06 Urine color determination YELLOW NRG Urine clarity determination SLIGHTLY CLOUDY NRG Urine pH measurement by test strip 6 5-9 Specific gravity of urine by test strip 1.015 1.016-1.022 Urine protein assay by test strip, semi-quantitative NEGATIVE NEGATIVE Urine glucose detection by automated test strip NEGATIVE NEGATIVE Erythrocytes detection in urine sediment by light microscopy NEGATIVE NEGATIVE Urine ketones detection by automated test strip NEGATIVE NEGATIVE Urine nitrite detection by test strip NEGATIVE NEGATIVE Urine total bilirubin detection by test strip NEGATIVE NEGATIVE Urine urobilinogen measurement by automated test strip (mass/volume) NORMAL NORMAL Urine leukocyte esterase detection by dipstick NEGATIVE NEGATIVE Automated urine sediment erythrocyte count by microscopy (number/high power field) RARE NRG Automated urine sediment leukocyte count by microscopy (number/high power field) RARE NRG Bacteria detection in urine sediment by light microscopy NEGATIVE NRG Crystals detection in urine sediment by light microscopy NONE NRG Casts detection in urine sediment by light microscopy NONE NRG Mucus detection in urine sediment by light microscopy NEGATIVE NRG Complete urinalysis with reflex to culture NO NRG Complete urinalysis with reflex to culture - 01/17/19 10:30 Urine color determination YELLOW NRG Urine clarity determination CLEAR NRG Urine pH measurement by test strip 5 5-9 Specific gravity of urine by test strip 1.025 1.016-1.022 Urine protein assay by test strip, semi-quantitative 2+ NEGATIVE Urine glucose detection by automated test strip NEGATIVE NEGATIVE Erythrocytes detection in urine sediment by light microscopy 3+ NEGATIVE Urine ketones detection by automated test strip NEGATIVE NEGATIVE Urine nitrite detection by test strip NEGATIVE NEGATIVE Urine total bilirubin detection by test strip NEGATIVE NEGATIVE Urine urobilinogen measurement by automated test strip (mass/volume) NORMAL NORMAL Urine leukocyte esterase detection by dipstick 1+ NEGATIVE Automated urine sediment erythrocyte count by microscopy (number/high power field) [HPF] NRG Automated urine sediment leukocyte count by microscopy (number/high power field) NONE NRG Bacteria detection in urine sediment by light microscopy NEGATIVE NRG Squamous epithelial cells detection in urine sediment by light microscopy NONE NRG Crystals detection in urine sediment by light microscopy NONE NRG Casts detection in urine sediment by light microscopy NONE NRG Mucus detection in urine sediment by light microscopy NEGATIVE NRG Complete urinalysis with reflex to culture NO NRG Encounters ACCT No. Visit Date/Time Discharge Status Pt. Type Provider Facility Loc./Unit Complaint [id number] 10/14/2018 16:27:00 10/14/2018 23:59:59 CLS Outpatient NATHANAEL ALTAMIRANO MD [facility] RAD DISTAL URETERAL [id number] 05/06/2018 15:37:00 05/06/2018 23:59:59 CLS Outpatient NATHANAEL ALTAMIRANO MD [facility] RAD URETERAL STONE [id number] 04/18/2018 10:09:00 04/18/2018 14:01:00 DIS Emergency PHILIPP BEJARANO [employer] [facility] ER CANNOT URINATE [id number] 11/22/2017 12:40:00 11/22/2017 23:59:59 CLS Outpatient NATHANAEL ALTAMIRANO MD [facility] RAD LT URETERAL STONE N20.1 [id number] 11/07/2017 06:25:00 11/07/2017 11:30:00 DIS Out[facility] BILATER URETERAL STONE, BPH [id number] 10/30/2017 15:14:00 10/30/2017 15:40:00 DIS Outpatient NATHANAEL ALTAMIRANO MD [facility] PREOP LEFT URETERAL STONE, BILATERAL RENAL STONE, BPH [id number] 10/29/2017 12:26:00 10/29/2017 17:10:00 DIS Emergency PHILIPP BEJARANO [employer] [facility] ER ENLARGED PROSTATE,CAN'T URINATE [id number] 04/07/2016 10:07:00 04/07/2016 23:59:59 CLS Outpatient NATHANAEL ALTAMIRANO MD [facility] RAD LT URETERAL STONE [id number] 04/04/2016 08:02:00 04/04/2016 14:20:00 DIS Outpatient NATHANAEL ALTAMIRANO MD [facility] SDC LEFT STONE [id number] 04/03/2016 09:31:00 04/03/2016 10:30:00 DIS Outpatient NATHANAEL ALTAMIRANO MD [facility] PREOP LEFT STONE [id number] 03/29/2016 17:05:00 03/29/2016 23:59:59 CLS Outpatient NATHANAEL ALTAMIRANO MD [facility] RAD DIS UR SBONE [id number] 05/13/2015 10:39:00 05/13/2015 14:41:00 DIS Emergency YONAS SANDERS MD [facility] ER UNABLE TO URINATE [id number] 04/14/2015 09:43:00 05/12/2015 11:38:00 DIS Outpatient PATY BAHENA, CARYN Victoria [facility] REHAB CVA [id number] 01/17/2019 10:46:00 Document Registration [id number] 09/13/2014 15:37:00 ACT Inpatient LUIS ALBERTO KRUEGER, NELSON [place] [facility] IRF CVA [id number] 05/13/2015 13:38:09 ACT Document Registration
[2019-01-18] MEDS ORDERED: OXYC1TAB87 PO (10:58)
== END 2019-01-17 11:52 | disposition home or self-care (01) ==
LOC: EDUNIT# 09:08 → ER 09:09
DX: N13.9 Obstructive and reflux uropathy, unspecified (principal); I25.10 Atherosclerotic heart disease of native coronary artery without angina pectoris; E78.00 Pure hypercholesterolemia, unspecified; I73.9 Peripheral vascular disease, unspecified; G40.909 Epilepsy, unspecified, not intractable, without status epilepticus; F41.9 Anxiety disorder, unspecified; K21.9 Gastro-esophageal reflux disease without esophagitis; Z87.442 Personal history of urinary calculi; Z80.1 Family history of malignant neoplasm of trachea, bronchus and lung; Z82.49 Family history of ischemic heart disease and other diseases of the circulatory system; Z80.49 Family history of malignant neoplasm of other genital organs; Z87.19 Personal history of other diseases of the digestive system; Z87.440 Personal history of urinary (tract) infections; Z86.73 Personal history of transient ischemic attack (TIA), and cerebral infarction without residual deficits; Z87.448 Personal history of other diseases of urinary system; Z88.8 Allergy status to other drugs, medicaments and biological substances; Z87.891 Personal history of nicotine dependence; Z90.49 Acquired absence of other specified parts of digestive tract; Z98.890 Other specified postprocedural states; Z98.61 Coronary angioplasty status
CPT/HCPCS: 51702; 81000

== ENCOUNTER 2019-01-18 07:48 | Emergency (ER) | payer MEDICARE, OTHER ==
[~2019-01-18] VITALS: Ht 188 cm; Wt 90.7 kg
[2019-01-18] MEDS ORDERED: morphine INJ 10 MG/ML 1ML (SYR OR VIAL) IVP STA (08:07)
[2019-01-18 08:29] LABS: BASOPHILS % (AUTO) 0 % (0-10); EOSINOPHILS # (AUTO) 0.1 10^3/uL (0.0-0.3); EOSINOPHILS % (AUTO) 1 % (0-10); HEMATOCRIT 38 % (40-54); HEMOGLOBIN 12.6 G/DL (13.3-17.7); LYMPHOCYTES % (AUTO) 27 % (12-44); MEAN CORPUSCULAR HEMOGLOBIN 32 PG (25-34); MEAN CORPUSCULAR HGB CONC 33 G/DL (32-36); MEAN CORPUSCULAR VOLUME 97 FL (80-99); MEAN PLATELET VOLUME 9.4 FL (7.4-10.4); MONOCYTES # (AUTO) 0.8 X 10^3 (0.0-1.0); MONOCYTES % (AUTO) 21 % (0-12); NEUTROPHILS # (AUTO) 1.9 X 10^3 (1.8-7.8); NEUTROPHILS % (AUTO) 51 % (42-75); PLATELET COUNT 153 10^3/uL (130-400); RED CELL DISTRIBUTION WIDTH 15.7 % (10.0-14.5); WHITE BLOOD COUNT 3.8 10^3/uL (4.3-11.0)
[2019-01-18 08:56] LABS: ALANINE AMINOTRANSFERASE 18 U/L (0-55); ALKALINE PHOSPHATASE 74 U/L (40-136); BILIRUBIN,TOTAL 0.4 MG/DL (0.1-1.0); BUN/CREATININE RATIO 18; CALCIUM 9.3 MG/DL (8.5-10.1); CARBON DIOXIDE 24 MMOL/L (21-32); CHLORIDE 108 MMOL/L (98-107); CREATININE SERUM 1.06 MG/DL (0.60-1.30); GFR ESTIMATED > 60; GLUCOSE 111 MG/DL (70-105); LIPASE 17 U/L (8-78); POTASSIUM 3.9 MMOL/L (3.6-5.0); SODIUM 142 MMOL/L (135-145); TOTAL PROTEIN 7.2 GM/DL (6.4-8.2)
[2019-01-18 09:06] LABS: BAND NEUTROPHILS 2 %; BASOPHILS % (MANUAL) 1 %; EOSINOPHILS % (MANUAL) 2 %; LYMPHOCYTES % (MANUAL) 34 %; MONOCYTES % (MANUAL) 26 %; NEUTROPHILS % (MANUAL) 35 %; RBC MORPH NORMAL
[2019-01-18] MEDS ORDERED: IOHEXOL 350 MG/ML 100 ML (OMNIPAQUE 350) VIAL IV ONE (10:00)
[2019-01-18] MEDS ORDERED: HOLD METFORMIN - RECEIVED CONTRAST 20 ML VIAL IV SCH (10:00)
[2019-01-18] MEDS ORDERED: NS 100 ML (IVPB) BAG IV ONE (10:00)
--- NOTE | 2019-01-18 10:35 | Diagnostic Imaging Report ---
PROCEDURE: CT chest, abdomen, and pelvis with contrast. TECHNIQUE: Multiple contiguous axial images were obtained through the chest, abdomen, and pelvis after the administration of intravenous contrast. Auto Exposure Controls were utilized during the CT exam to meet ALARA standards for radiation dose reduction. INDICATION: Pelvic pain after catheter placement. Weakness. COMPARISON: CT abdomen and pelvis without contrast 04/18/2018. Abdominal radiograph 10/14/2018. FINDINGS: Chest: Advanced centrilobular emphysematous changes in both lungs. No focal consolidation. No endobronchial lesions. No pleural effusion or pneumothorax. Normal heart size. No pericardial effusion. Normal caliber central pulmonary arteries and thoracic aorta. No mediastinal, hilar or axillary lymphadenopathy. No acute osseous findings. Abdomen and pelvis: Obstructing renal stone in the mid left ureter measuring approximately 3 mm results in moderate to advanced left hydronephrosis. No right renal or ureteral stones. No right hydronephrosis. Begum catheter within the bladder. Simple appearing cyst in the liver is similar to the prior noncontrast exam and measures up to 7.8 cm. The pancreas, gallbladder, spleen, adrenals are negative. No evidence of appendicitis. Infrarenal abdominal aortic aneurysm measures up to 4.0 cm. No lymphadenopathy. No free intraperitoneal air or fluid. No evidence of bowel obstruction. No acute osseous findings. Moderate spondylotic changes in the spine. IMPRESSION: 1. A 3 mm renal stone in the mid left ureter results in moderate to advanced left hydronephrosis. 2. Begum catheter is appropriately positioned within the bladder. 3. No acute CT findings in the chest. Advanced emphysema. Dictated by: Dictated on workstation # [id number]
[2019-01-18] MEDS ORDERED: OXYC1TAB87 PO (10:58)
--- NOTE | 2019-01-18 10:59 | ED General ---
General Chief Complaint: General Problems/Pain Stated Complaint: ABD PAIN Source of Information: Family Exam Limitations: Other (patient unable to verbally communicate secondary to stroke) History of Present Illness Date Seen by Provider: Jan 18, 2019 Time Seen by Provider: 07:51 Initial Comments This 68-year-old gentleman is brought to the emergency room by his . He was seen yesterday for urinary retention and a Begum catheter was placed at the request of Dr. Altamirano's office. Patient has continued to have intermittent bouts of pain and distress through the night. His brings him back today for reevaluation. There his been no vomiting, constipation or diarrhea. He is afebrile. Urinalysis was unremarkable yesterday. Patient has significant communication deficit due to stroke. His believes the source of his pain is abdominal. It seems to be worse when lying flat. Allergies and Home Medications Allergies Coded Allergies: butorphanol (Unverified Adverse Reaction, Unknown, 09/13/14) HALLUCINATIONS fentanyl (Verified Adverse Reaction, Unknown, hallucinations, 04/03/16) nalbuphine (Unverified Adverse Reaction, Unknown, 09/13/14) HALLUCINATIONS Home Medications Ascorbate Calcium 500 Mg Tablet, 500 MG PO BID, (Reported) Baclofen 10 Mg Tablet, 10 MG PO DAILY, (Reported) Carbamazepine 200 Mg Tablet, 200 MG PO BID, (Reported) Ciprofloxacin HCl 500 Mg Tablet, 500 MG PO BID Prescribed by: JOSE VARGAS on 11/07/17 1027 Dextromethorphan HBr/Quinidine 1 Each Capsule, 1 TAB PO BID, (Reported) Diphenhydramine HCl 25 Mg Tablet, 25 MG PO BID, (Reported) Docusate Sodium 100 Mg Capsule, 100 MG PO BID, (Reported) Dutasteride 0.5 Mg Cap, 0.5 MG PO HS, (Reported) Fluoxetine HCl 20 Mg Capsule, 20 MG PO DAILY, (Reported) Gabapentin 300 Mg Capsule, 300 MG PO HS, (Reported) Hydrocodone/Acetaminophen 1 Each Tablet, 1 EACH PO Q4H PRN for PAIN-MODERATE TO SEVERE Prescribed by: PHILIPP BEJARANO on 10/29/17 1617 Hydrocodone/Acetaminophen 1 Each Tablet, 1-2 TAB PO Q4H PRN for PAIN Prescribed by: JOSE VARGAS on 11/07/17 1027 Lorazepam 1 Mg Tablet, 1 MG PO HS, (Reported) Multivitamin 1 Each Tablet, 1 EACH PO DAILY, (Reported) Omeprazole 20 Mg Tablet.dr, 20 MG PO DAILY, (Reported) Oxycodone HCl/Acetaminophen 1 Each Tablet, 1-2 TAB PO Q6H PRN for PAIN-MODERATE TO SEVERE Prescribed by: YONAS SIMS on 01/18/19 1058 Rosuvastatin Calcium 5 Mg Tablet, 10 MG PO HS, (Reported) Sulfamethoxazole/Trimethoprim 1 Each Tablet, 1 EACH PO HS, (Reported) Sulfamethoxazole/Trimethoprim 1 Each Tablet, 1 EACH PO BID Prescribed by: PHILIPP BEJARANO on 10/29/17 1617 Tamsulosin HCl 0.4 Mg Cap, 0.4 MG PO DAILY Prescribed by: JOSE VARGAS on 11/07/17 1027 Vitamin B Complex 1 Each Capsule, 1 EACH PO DAILY, (Reported) Patient Home Medication List Home Medication List Reviewed: Yes Review of Systems Review of Systems Constitutional: no symptoms reported EENTM: no symptoms reported Respiratory: no symptoms reported Cardiovascular: no symptoms reported Gastrointestinal: see HPI Genitourinary: see HPI Musculoskeletal: no symptoms reported Skin: no symptoms reported Psychiatric/Neurological: No Symptoms Reported Hematologic/Lymphatic: No Symptoms Reported Past Xmnspbg-Yzfojn-Jeoqlm Hx Past Med/Social Hx: Reviewed and Corrections made Patient Social History Alcohol Use: Denies Use Recreational Drug Use: No Smoking Status: Former Smoker Type Used: Cigarettes Former Smoker, Quit: Jul 30, 2012 2nd Hand Smoke Exposure: No Recent Hopitalizations: No Immunizations Up To Date Tetanus Booster (TDap): Unknown Date of Pneumonia Vaccine: Aug 13, 2013 Date of Influenza Vaccine: May 16, 2017 Seasonal Allergies Seasonal Allergies: No Past Medical History Surgeries: Yes (RIGHT CEA, KNEE SX x5, RIGHT FOOT SX, HERNIA SX, LOWER BACK SX) Appendectomy, Cardiac, Orthopedic, Vascular Surgery Respiratory: No Cardiac: Yes (ANGIOPLASTY '96, HIGH LIPIDS, CAROTID STENOSIS ) Aneurysm (abdominal aortic aneurysm), Coronary Artery Disease, High Cholesterol, Peripheral Vascular Neurological: Yes (YEARS AGO BAD HEADACHES, DIZZY SPELLS/FAINTING, R ARM CONTRACTION) Seizure Disorder, Stroke Reproductive Disorders: No Genitourinary: Yes (urinary obstruction) Benign Prostatic Hyperpl, Kidney Stones, UTI-Chronic Gastrointestinal: Yes (HX OF A FEEDING TUBE) Gastroesophageal Reflux Musculoskeletal: Yes (ARTHRITIS HANDS, KNEES; SCIATIC NERVE SURG ) Arthritis Endocrine: No Dysphagia Loss of Vision: Denies Hearing Impairment: Denies Cancer: No Psychosocial: Yes Anxiety Integumentary: No Blood Disorders: No Adverse Reaction/Blood Tranf: No Family Medical History Alzheimer's disease Uncle FH: CVA (cerebrovascular accident) Uncle Uncle FH: coronary artery disease 19 FATHER G8 BROTHER FH: lung cancer G8 BROTHER FH: uterine cancer Aunt Hypertension G8 BROTHER Myocardial infarction 19 FATHER Vertigo Uncle Aunt Physical Exam Vital Signs Vital Signs - First Documented 01/18/19 07:56 Temp 96.7 Pulse 96 Resp 20 B/P (MAP) 137/96 (110) Pulse Ox 100 O2 Delivery Room Air Capillary Refill : Height, Weight, BMI Height: 6'2.00" Weight: 200lbs. 0.0oz. 90.355999zn; 25.7 BMI Method:Stated General Appearance: WD/WN, Mild Distress HEENT: PERRL/EOMI, Normal ENT Inspection Neck: Normal Inspection Respiratory: Lungs Clear, Normal Breath Sounds, No Accessory Muscle Use, No Respiratory Distress Cardiovascular: Regular Rate, Rhythm, No Edema, No Murmur Gastrointestinal: Normal Bowel Sounds, Soft, Tenderness (appears to be tender in the lower and mid abdomen) Extremity: Other (chronic lower extremity edema) Neurologic/Psychiatric: Alert, Other (chronic deficits due to stroke, unchanged) Skin: Normal Color, Warm/Dry Progress/Results/Core Measures Suspected Sepsis SIRS Temperature: Pulse: Respiratory Rate: Laboratory Tests 01/18/19 08:20: White Blood Count 3.8L Blood Pressure / Mean: Laboratory Tests 01/18/19 08:20: Creatinine 1.06, Platelet Count 153, Total Bilirubin 0.4 Results/Orders Lab Results Laboratory Tests Test 01/18/19 08:20 Range/Units White Blood Count 3.8 L 4.3-11.0 10^3/uL Red Blood Count 3.96 L 4.35-5.85 10^6/uL Hemoglobin 12.6 L 13.3-17.7 G/DL Hematocrit 38 L 40-54 % Mean Corpuscular Volume 97 80-99 FL Mean Corpuscular Hemoglobin 32 25-34 PG Mean Corpuscular Hemoglobin Concent 33 32-36 G/DL Red Cell Distribution Width 15.7 H 10.0-14.5 % Platelet Count 153 130-400 10^3/uL Mean Platelet Volume 9.4 7.4-10.4 FL Neutrophils (%) (Auto) 51 42-75 % Lymphocytes (%) (Auto) 27 12-44 % Monocytes (%) (Auto) 21 H 0-12 % Eosinophils (%) (Auto) 1 0-10 % Basophils (%) (Auto) 0 0-10 % Neutrophils # (Auto) 1.9 1.8-7.8 X 10^3 Lymphocytes # (Auto) 1.0 1.0-4.0 X 10^3 Monocytes # (Auto) 0.8 0.0-1.0 X 10^3 Eosinophils # (Auto) 0.1 0.0-0.3 10^3/uL Basophils # (Auto) 0.0 0.0-0.1 10^3/uL Neutrophils % (Manual) 35 % Lymphocytes % (Manual) 34 % Monocytes % (Manual) 26 % Eosinophils % (Manual) 2 % Basophils % (Manual) 1 % Band Neutrophils 2 % Blood Morphology Comment NORMAL Sodium Level 142 135-145 MMOL/L Potassium Level 3.9 3.6-5.0 MMOL/L Chloride Level 108 H 98-107 MMOL/L Carbon Dioxide Level 24 21-32 MMOL/L Anion Gap 10 5-14 MMOL/L Blood Urea Nitrogen 19 H 7-18 MG/DL Creatinine 1.06 0.60-1.30 MG/DL Estimat Glomerular Filtration Rate > 60 BUN/Creatinine Ratio 18 Glucose Level 111 H 70-105 MG/DL Calcium Level 9.3 8.5-10.1 MG/DL Corrected Calcium 9.3 8.5-10.1 MG/DL Total Bilirubin 0.4 0.1-1.0 MG/DL Aspartate Amino Transf (AST/SGOT) 12 5-34 U/L Alanine Aminotransferase (ALT/SGPT) 18 0-55 U/L Alkaline Phosphatase 74 40-136 U/L Total Protein 7.2 6.4-8.2 GM/DL Albumin 4.0 3.2-4.5 GM/DL Lipase 17 8-78 U/L My Orders Orders - YONAS SANDERS MD Cbc With Automated Diff (01/18/19 07:52) Comprehensive Metabolic Panel (01/18/19 07:52) Lipase (01/18/19 07:52) Ed Iv/Invasive Line Start (01/18/19 07:52) Morphine Injection (Morphine Injection (01/18/19 08:07) Manual Differential (01/18/19 08:20) Ct Chest/Abdomen/Pelvis W (01/18/19 09:40) Iohexol Injection (Omnipaque 350 Mg/Ml 1 (01/18/19 10:00) Received Contrast (Hold Metformin- Contr (01/18/19 10:00) Ns (Ivpb) (Sodium Chloride 0.9% Ivpb Bag (01/18/19 10:00) Abdomen/Kub 1view (01/18/19 10:52) Ketorolac Injection (Toradol Injection) (01/18/19 11:00) Vital Signs/I&O Capillary Refill : Progress Note : Progress Note Patient was given morphine and Toradol for pain. CT of the chest, abdomen and pelvis was obtained to further evaluate for sources of pain. He was found to again have a left ureteral stone. This now appears to be causing obstruction where it had not been causing obstruction on prior CT. This for a well could be the source of his pain. Pain was controlled in the ER and he was dismissed to outpatient follow-up. He has appointment with Dr. Altamirano on Sunday. Diagnostic Imaging Diagonstic Imaging: CT Plain Films/CT/US/NM/MRI: abdomen, pelvis Comments CT abdomen and pelvis viewed by me and report reviewed. See report below: NAME: FINN FIGUEREDO [facility] REC#: [id number] PT STATUS: REG ER : 1950 PHYSICIAN: YONAS SANDERS MD ADMIT DATE: 01/18/19/ER Draft Date of Exam:01/18/19 CT CHEST/ABDOMEN/PELVIS W PROCEDURE: CT chest, abdomen, and pelvis with contrast. TECHNIQUE: Multiple contiguous axial images were obtained through the chest, abdomen, and pelvis after the administration of intravenous contrast. Auto Exposure Controls were utilized during the CT exam to meet ALARA standards for radiation dose reduction. INDICATION: Pelvic pain after catheter placement. Weakness. COMPARISON: CT abdomen and pelvis without contrast 04/18/2018. Abdominal radiograph 10/14/2018. FINDINGS: Chest: Advanced centrilobular emphysematous changes in both lungs. No focal consolidation. No endobronchial lesions. No pleural effusion or pneumothorax. Normal heart size. No pericardial effusion. Normal caliber central pulmonary arteries and thoracic aorta. No mediastinal, hilar or axillary lymphadenopathy. No acute osseous findings. Abdomen and pelvis: Obstructing renal stone in the mid left ureter measuring approximately 3 mm results in moderate to advanced left hydronephrosis. No right renal or ureteral stones. No right hydronephrosis. Begum catheter within the bladder. Simple appearing cyst in the liver is similar to the prior noncontrast exam and measures up to 7.8 cm. The pancreas, gallbladder, spleen, adrenals are negative. No evidence of appendicitis. Infrarenal abdominal aortic aneurysm measures up to 4.0 cm. No lymphadenopathy. No free intraperitoneal air or fluid. No evidence of bowel obstruction. No acute osseous findings. Moderate spondylotic changes in the spine. IMPRESSION: 1. A 3 mm renal stone in the mid left ureter results in moderate to advanced left hydronephrosis. 2. Begum catheter is appropriately positioned within the bladder. 3. No acute CT findings in the chest. Advanced emphysema. Dictated on workstation # [id number] Dict: 01/18/19 1021 Trans: 01/18/19 1035 HAYDEN [id number] Interpreted by: JYOTHI JURADO MD Departure Impression Primary Impression: Left ureteral stone Additional Impression: Abdominal pain Qualified Codes: R10.9 - Unspecified abdominal pain Disposition: 01 HOME, SELF-CARE Condition: Improved Departure-Patient Inst. Decision time for Depature: 10:50 Referrals: CARYN NEWMAN (PCP/Family) Primary Care Physician Patient Instructions: Kidney Stone Diet, Kidney Stones in Adults Add. Discharge Instructions: Encourage plenty of clear liquids. Follow-up with Dr. Altamirano on Sunday. You may use ibuprofen up to 600 mg every 6 hours as needed for primary pain control. Add Percocet as prescribed for pain not controlled by ibuprofen. Return to care if symptoms are worsening. All discharge instructions reviewed with patient and/or family. Voiced understanding. Scripts Oxycodone HCl/Acetaminophen (Percocet 5-325 mg Tablet) 1 Each Tablet 1-2 TAB PO Q6H PRN for PAIN-MODERATE TO SEVERE MDD 6 TABS, #20 TAB Prov: YONAS SANDERS MD 01/18/19 Copy Copies To 1: NATHANAEL ALTAMIRANO MD, JOSHUA T MD Jan 18, 2019 10:59
[2019-01-18] MEDS ORDERED: KETOROLAC 30 MG/ML VIAL IVP ONE (11:00)
[2019-01-18 11:25] VITALS: BP 116/106
--- NOTE | 2019-01-18 11:31 | Diagnostic Imaging Report ---
EXAM: ABDOMEN/KUB 1VIEW INDICATION: Left ureteral stone. COMPARISON: CT chest, abdomen and pelvis with IV contrast 01/18/2019. FINDINGS: There is enteric contrast within the collecting systems. Again seen is the [id number] left hydronephrosis. The 3 mm renal stone seen on the CT is not seen by radiography. Begum catheter. Nonspecific bowel gas pattern. IMPRESSION: Stable [id number] left hydronephrosis due to a nonobstructing renal stone in the mid left ureter which is not seen on this exam. Dictated by: Dictated on workstation # [id number]
== END 2019-01-18 11:25 | disposition home or self-care (01) ==
LOC: EDUNIT# 07:48 → ER 07:50
DX: N13.2 Hydronephrosis with renal and ureteral calculous obstruction (principal); I25.10 Atherosclerotic heart disease of native coronary artery without angina pectoris; E78.00 Pure hypercholesterolemia, unspecified; I73.9 Peripheral vascular disease, unspecified; K21.9 Gastro-esophageal reflux disease without esophagitis; F41.9 Anxiety disorder, unspecified; M13.0 Polyarthritis, unspecified; G40.909 Epilepsy, unspecified, not intractable, without status epilepticus; Z87.448 Personal history of other diseases of urinary system; Z82.49 Family history of ischemic heart disease and other diseases of the circulatory system; Z80.1 Family history of malignant neoplasm of trachea, bronchus and lung; Z80.49 Family history of malignant neoplasm of other genital organs; Z87.442 Personal history of urinary calculi; Z87.19 Personal history of other diseases of the digestive system; Z96.0 Presence of urogenital implants; Z88.8 Allergy status to other drugs, medicaments and biological substances; Z86.73 Personal history of transient ischemic attack (TIA), and cerebral infarction without residual deficits; Z87.891 Personal history of nicotine dependence; Z98.890 Other specified postprocedural states; Z90.49 Acquired absence of other specified parts of digestive tract; Z98.61 Coronary angioplasty status
CPT/HCPCS: 36415; 71260; 74018; 74177; 80053; 83690; 85007; 85027; 96374; 96375